=== PATIENT | male | born 1945 | race Caucasian/White ===

== ENCOUNTER 2017-05-25 21:39 | Observation (INO) | payer BC ==
[2017-05-25] MEDS ORDERED: SODIUM CHLORIDE 1,000 ML IV STA (21:52)
[2017-05-25] MEDS ORDERED: ONDANSETRON 4 MG/2 ML VIAL IVPB ONE (21:52)
--- NOTE | 2017-05-25 21:52 | PDOC ---
History of Present Illness - General History Source: Patient Exam Limitations: No Limitations - History of Present Illness Initial Comments: The patient is a 71 yo M with no past medical history presents with a couple days of nausea, vomiting and diarrhea. He describes his diarrhea as brown and watery. Patient denies recent travel. Patient denies sick contacts. Patient denies chest pain, lightheadedness and palpitations. Patient denies abdominal pain. Patient denies hematochezia and melena. Patient denies dysuria, hematuria , frequency and urgency. Surgical Hx: cholecystectomy PCP: Dr. Joe Rose Allergies: NKDA Social Hx: Social ETOH use <KinjassoncasaAngela - Last Filed: 05/26/17 01:37> <Zhane Hernández - Last Filed: 05/26/17 03:14> - General Chief Complaint: Nausea/Vomiting Stated Complaint: VOMITING Time Seen by Provider: 05/25/17 21:52 Past History <KinjassoncasaAngela - Last Filed: 05/26/17 01:37> - Psycho/Social/Smoking Cessation Hx Suicidal Ideation: No Smoking History: Never smoked Have you smoked in the past 12 months: No Information on smoking cessation initiated: No Hx Alcohol Use: No Drug/Substance Use Hx: No <Zhane Hernández - Last Filed: 05/26/17 03:14> - Past Medical History Allergies/Adverse Reactions: Allergies Allergy/AdvReac Type Severity Reaction Status Date / Time No Known Allergies Allergy Verified 05/25/17 21:44 Home Medications: Ambulatory Orders NK [No Known Home Medication] 05/25/17 Review of Systems - Review of Systems Able to Perform ROS?: Yes Comments:: CONSTITUTIONAL: Absent: fever, chills, diaphoresis, generalized weakness, malaise, loss of appetite HEENT: Absent: rhinorrhea, nasal congestion, throat pain, throat swelling, difficulty swallowing, mouth swelling, ear pain, eye pain, visual Changes CARDIOVASCULAR: Absent: chest pain, syncope, palpitations, irregular heart rate, lightheadedness , peripheral edema RESPIRATORY: Absent: cough, shortness of breath, dyspnea with exertion, orthopnea, wheezing, stridor, hemoptysis GASTROINTESTINAL: +nausea, vomiting and diarrhea Absent: abdominal pain, abdominal distension, constipation, melena, hematochezia GENITOURINARY: Absent: dysuria, frequency, urgency, hesitancy, hematuria, flank pain, genital pain MUSCULOSKELETAL: Absent: myalgia, arthralgia, joint swelling SKIN: Absent: rash, itching, pallor HEMATOLOGIC/IMMUNOLOGIC: Absent: easy bleeding, easy bruising, lymphadenopathy, frequent infections ENDOCRINE: Absent: unexplained weight gain, unexplained weight loss, heat intolerance, cold intolerance NEUROLOGIC: Absent: headache, focal weakness or paresthesia, dizziness, unsteady gait, seizure, mental status changes, bladder or bowel incontinence PSYCHIATRIC: Absent: anxiety, depression, suicidal or homicidal ideation, hallucinations <Angela Perez - Last Filed: 05/26/17 01:37> *Physical Exam - Vital Signs Last Vital Signs Temp Pulse Resp BP Pulse Ox 98.0 F 77 18 142/76 97 05/25/17 21:42 05/25/17 21:42 05/25/17 21:42 05/25/17 21:42 05/25/17 21:42 - Physical Exam Comments: GENERAL: Well developed, well nourished. Awake and alert. No acute distress. HEENT: Normocephalic, atraumatic. PERRLA, EOMI. No conjunctival pallor. Sclera are non- icteric. Moist mucous membranes. Oropharynx is clear. NECK: Supple. Full ROM. No JVD. Carotid pulses 2+ and symmetric, without bruits. No thyromegaly. No lymphadenopathy. CARDIOVASCULAR: Regular rate and rhythm. No murmurs, rubs, or gallops. Distal pulses are 2+ and symmetric. PULMONARY: No evidence of respiratory distress. Lungs clear to auscultation bilaterally. No wheezing, rales or rhonchi. ABDOMINAL: Soft. Non-tender. Non-distended. No rebound or guarding. No organomegaly. Normoactive bowel sounds. MUSCULOSKELETAL Normal range of motion at all joints. No bony deformities or tenderness. No CVA tenderness. EXTREMITIES: No cyanosis. No clubbing. No edema. No calf tenderness. SKIN: Warm and dry. Normal capillary refill. No rashes. No jaundice. NEUROLOGICAL: No gross focal neurological deficits. PSYCHIATRIC: Cooperative. Good eye contact. Appropriate mood and affect <Angela Perez - Last Filed: 05/26/17 01:37> - Vital Signs Last Vital Signs Temp Pulse Resp BP Pulse Ox 98.0 F 77 18 142/76 97 05/25/17 21:42 05/25/17 21:42 05/25/17 21:42 05/25/17 21:42 05/25/17 21:42 <Zhane Hernández - Last Filed: 05/26/17 03:14> Heart Score/ECG Review #1 ECG: NSR @ 71 bpm. Possible left atrial enlargement. Left axis deviation. Incomplete right bundle branch block. Left ventricualr hypertrophy. <Angela Perez - Last Filed: 05/26/17 01:37> ED Treatment Course - LABORATORY CBC & Chemistry Diagram: 05/25/17 22:25 05/25/17 22:25 - Medications Given in the ED: ED Medications Discontinued Medications Generic Name Dose Route Start Last Admin Trade Name Freq PRN Reason Stop Dose Admin Ondansetron HCl 4 mg 05/25/17 21:52 05/25/17 22:00 Zofran Injection IVPB 05/25/17 21:53 4 mg ONCE ONE Administration <Angela Perez - Last Filed: 05/26/17 01:37> - LABORATORY CBC & Chemistry Diagram: 05/25/17 22:25 05/25/17 22:25 <Zhane Hernández - Last Filed: 05/26/17 03:14> Medical Decision Making - Medical Decision Making Dr. Alvarez was paged @ 1:32. awaiting call back. Dr. Kunz was covering for Dr. Alvarez and responded @ 1:35. Case was discussed. <Angela Perez - Last Filed: 05/26/17 01:37> - Medical Decision Making 05/26/17 03:11 71 yo male p/w nausea,vomiting and diarrhea -pt given zofran and reglan but had persistent vomiting -he DENIED any abdominal or chest pain. no fever or chills ,cough or dyspnea -abdomen was soft,no rebound,no guarding pt admitted to med/surg after cse discussed with Dr Sha Kunz <Zhane Hernández - Last Filed: 05/26/17 03:14> *DC/Admit/Observation/Transfer - Attestations Scribe Attestion: Documentation prepared by Angela Perez, acting as senior medical writer for Zhane Hernández MD/DO. <Angela Perez - Last Filed: 05/26/17 01:37> - Discharge Dispostion Admit: Yes <Zhane Hernández - Last Filed: 05/26/17 03:14> Diagnosis at time of Disposition: Vomiting and diarrhea - Referrals
[2017-05-25] MEDS ORDERED: ONDANSETRON 4 MG/2 ML VIAL ONE (22:10)
[2017-05-25 22:40] LABS: BASOPHIL 0.3 % (0-2.0); EOSINOPHIL 0.7 % (0-4.5); MCH 29.4 pg (25.7-33.7); MCHC 33.5 g/dl (32.0-35.9); MEAN CELL VOLUME 87.6 fl (80-96); NEUTROPHILS 72.1 % (42.8-82.8); PLATELET COUNT 232 K/MM3 (134-434); RDW 13.5 % (11.9-15.9); WHITE BLOOD COUNT 12.5 K/mm3 (4.0-10.0)
[2017-05-25 23:08] LABS: ALBUMIN 4.3 g/dl (3.4-5.0); ALK PHOS 76 U/L (45-117); ANION GAP 10 (8-16); BILIRUBIN,TOTAL 1.1 mg/dL (0.2-1.0); CALCIUM 10.2 mg/dL (8.5-10.1); CO2 27 mmol/L (21-32); CREATININE 0.9 mg/dL (0.7-1.3); GLUCOSE,RANDOM 140 mg/dL (74-106); SGOT/AST 12 U/L (15-37); SGPT/ALT 26 U/L (12-78)
[2017-05-26] MEDS ORDERED: ONDANSETRON 4 MG/2 ML VIAL IVPUSH ONE (01:27)
[2017-05-26] MEDS ORDERED: ONDANSETRON 4 MG/2 ML VIAL ONE ×2 (01:28→01:31)
[2017-05-26] MEDS ORDERED: METOCLOPRAMIDE HCL INJECTION 10 MG/2 ML VIAL IVPUSH ONE (01:37)
[2017-05-26] MEDS ORDERED: PROCHLORPERAZINE INJECTION 10 MG/2 ML VIAL IM PRN (01:43)
[2017-05-26 01:54] LABS: URINE APPEARANCE CLEAR; URINE BILIRUBIN NEGATIVE (NEGATIVE); URINE BLOOD NEGATIVE (NEGATIVE); URINE COLOR YELLOW; URINE GLUCOSE (UA) 1+ (NEGATIVE); URINE KETONE 1+ (NEGATIVE); URINE LEUK ESTERASE NEGATIVE (NEGATIVE); URINE NITRITE NEGATIVE (NEGATIVE); URINE UROBILINOGEN NEGATIVE E.U./dl (0.2-1.0)
[2017-05-26] MEDS: DEXTROSE 5%-0.45% SALINE 1,000 ML IV SCH ×2 (01:59→15:06)
[2017-05-26] MEDS ORDERED: METOCLOPRAMIDE HCL INJECTION 10 MG/2 ML VIAL ONE (02:02)
[2017-05-26 02:12] LABS: URINE PROTEIN 1+ (NEGATIVE)
[2017-05-26 02:23] LABS: CALCIUM OXALATE CRYSTALS RARE /hpf (NONE SEEN); URINE BACTERIA RARE /hpf (NONE SEEN); URINE MUCUS MODERATE; URINE RBC 3 /hpf (0-3); URINE WBC 10 /hpf (3-5)
[2017-05-26 03:07] VITALS: BMI 35.0
[2017-05-26 07:57] LABS: BASOPHIL 0.2 % (0-2.0); EOSINOPHIL 0.2 % (0-4.5); MCH 30.3 pg (25.7-33.7); MCHC 34.7 g/dl (32.0-35.9); MEAN CELL VOLUME 87.3 fl (80-96); MEAN PLT VOLUME 8.6 fl (7.5-11.1); NEUTROPHILS 73.1 % (42.8-82.8); PLATELET COUNT 188 K/MM3 (134-434); RDW 13.5 % (11.9-15.9); WHITE BLOOD COUNT 9.5 K/mm3 (4.0-10.0)
[2017-05-26 08:38] LABS: ALBUMIN 3.8 g/dl (3.4-5.0); ANION GAP 9 (8-16); CO2 27 mmol/L (21-32); GLUCOSE,RANDOM 120 mg/dL (74-106); SGPT/ALT 24 U/L (12-78)
[2017-05-26 08:45] LABS: ALK PHOS 63 U/L (45-117); BILIRUBIN,TOTAL 1.4 mg/dL (0.2-1.0); CALCIUM 9.6 mg/dL (8.5-10.1); CREATININE 0.8 mg/dL (0.7-1.3); SGOT/AST 13 U/L (15-37)
--- NOTE | 2017-05-26 12:32 | HP ---
Admitting History and Physical - Primary Care Physician PCP: Richard Alvarez - Admission Chief Complaint: I'm throwing up History of Present Illness: Mr Estrada is a very pleasant 71 year old male with no medical problems who comes in with intractable nausea, vomiting, and diarrhea. He says the symptoms began yesterday. He has not had any recent travel or ate anything that was abnormal. He says his mother had the same symptoms two weeks ago. He says yesterday morning he first developed diarrhea. He says it was watery and yellow in color. He went to the bathroom at least 10 times. He says yesterday morning he attempted to eat eggs, but after eating he became nauseous and threw up. At first it looked like undigested food, but later times it was yellow and bilious. He denies fevers, chills, lightheadedness, dizziness, passing out, chest pain, shortness of breath, difficulty or pain on urination, or swelling. He did not note blood in his emesis or bowel movements. No coffee ground emesis or hematochezia. He is feeling improved today. History Source: Patient Limitations to Obtaining History: No Limitations - Past Surgical History Past Surgical History: Yes: None - Smoking History Smoking history: Never smoked Have you smoked in the past 12 months: No - Alcohol/Substance Use Hx Alcohol Use: No History of Substance Use: reports: None - Social History Usual Living Arrangement: Yes: With Spouse ADL: Independent History of Recent Travel: No Home Medications - Allergies Allergies/Adverse Reactions: Allergies Allergy/AdvReac Type Severity Reaction Status Date / Time No Known Allergies Allergy Verified 05/25/17 21:44 - Home Medications Home Medications: Ambulatory Orders NK [No Known Home Medication] 05/25/17 Family Disease History - Family Disease History Family Disease History: Other: Father ( in the war), Mother (no medical issues) Review of Systems Findings/Remarks: full review of systems obtained, as per HPI and otherwise negative Physical Examination Vital Signs: Vital Signs Temperature 98.5 F 05/26/17 12:20 Pulse Rate 80 05/26/17 12:20 Respiratory Rate 20 05/26/17 08:24 Blood Pressure 116/77 05/26/17 12:20 O2 Sat by Pulse Oximetry (%) 98 05/26/17 06:26 Constitutional: Yes: Well Nourished, No Distress, Calm Eyes: Yes: Conjunctiva Clear, EOM Intact, PERRL HENT: Yes: Atraumatic, Normocephalic Cardiovascular: Yes: Regular Rate and Rhythm. No: Gallop, Murmur, Rub Respiratory: Yes: Regular, CTA Bilaterally. No: Rales, Rhonchi, Wheezes Gastrointestinal: Yes: Normal Bowel Sounds, Soft. No: Distention, Tenderness Extremities: Yes: WNL Edema: No Labs: CBC, BMP 05/26/17 07:40 05/26/17 07:40 Imaging - Results Chest X-ray: Report Reviewed, Image Reviewed Problem List - Problems (1) Gastroenteritis and colitis, viral Assessment/Plan: -suspect viral gastroenteritis -admit under observation -hydration with IVF -supportive care -beginning to improve -advance diet as tolerated -c diff negative Code(s): A08.4 - VIRAL INTESTINAL INFECTION, UNSPECIFIED (2) Dehydration Assessment/Plan: -secondary to gastroenteritis -continue hydration Code(s): E86.0 - DEHYDRATION Assessment/Plan Dispo -possible discharge tomorrow
[2017-05-26] MEDS ORDERED: ACETAMINOPHEN 325 MG TABLET (FP) PO PRN (18:07)
[2017-05-27] MEDS: DEXTROSE 5%-0.45% SALINE 1,000 ML IV SCH (06:12)
[2017-05-27 07:47] LABS: BASOPHIL 0.4 % (0-2.0); EOSINOPHIL 2.4 % (0-4.5); MCHC 34.3 g/dl (32.0-35.9); MEAN CELL VOLUME 87.6 fl (80-96); MEAN PLT VOLUME 8.2 fl (7.5-11.1); NEUTROPHILS 57.8 % (42.8-82.8); PLATELET COUNT 174 K/MM3 (134-434); RDW 13.5 % (11.9-15.9)
[2017-05-27 07:59] LABS: ANION GAP 4 (8-16); CALCIUM 9.6 mg/dL (8.5-10.1); CO2 33 mmol/L (21-32); CREATININE 0.9 mg/dL (0.7-1.3); GLUCOSE,RANDOM 115 mg/dL (74-106)
--- NOTE | 2017-05-27 11:15 | EKG ---
Test Reason : Blood Pressure : / mmHG Vent. Rate : 071 BPM Atrial Rate : 071 BPM P-R Int : 172 ms QRS Dur : 106 ms QT Int : 394 ms P-R-T Axes : 039 -40 -03 degrees QTc Int : 428 ms NORMAL SINUS RHYTHM POSSIBLE LEFT ATRIAL ENLARGEMENT LEFT AXIS DEVIATION INCOMPLETE RIGHT BUNDLE BRANCH BLOCK LEFT VENTRICULAR HYPERTROPHY ABNORMAL ECG NO PREVIOUS ECGS AVAILABLE Confirmed by MAULIK CROCKER MD ([id number]) on 05/27/2017 11:14:49 AM Referred By: Confirmed By:MAULIK CROCKER MD
[2017-05-27 13:30] VITALS: BP 127/74; PULSE 82; TEMP 98.1
--- NOTE | 2017-05-27 16:05 | DS ---
Physical Examination Vital Signs: Vital Signs Temperature 98.1 F 05/27/17 13:29 Pulse Rate 82 05/27/17 13:29 Respiratory Rate 16 05/27/17 13:29 Blood Pressure 127/74 05/27/17 13:29 O2 Sat by Pulse Oximetry (%) 98 05/26/17 14:12 Constitutional: Yes: Well Nourished, No Distress, Calm Cardiovascular: Yes: Regular Rate and Rhythm. No: Gallop, Murmur, Rub Respiratory: Yes: Regular, CTA Bilaterally. No: Rales, Rhonchi, Wheezes Gastrointestinal: Yes: Normal Bowel Sounds, Soft. No: Distention, Tenderness Extremities: Yes: WNL Edema: No Labs: CBC, BMP 05/27/17 06:55 05/27/17 06:55 Discharge Summary Reason For Visit: NAUSEA AND VOMIITNG Current Active Problems Dehydration (Acute) Gastroenteritis and colitis, viral (Acute) Vomiting and diarrhea (Acute) Hospital Course: Mr Alvarado is a very pleasant 71 year old male who presented with viral gastroenteritis. He was admitted to the hospital under observation. He was hydrated with IVF. He was placed on a clear liquid diet which he tolerated. After 24 hour observation, he improved. He was advanced to a regular diet and tolerated. He is safe for discharge home. Condition: Good - Instructions Diet, Activity, Other Instructions: resume previous diet and activity Referrals: Richard Alvarez MD [Primary Care Provider] - Disposition: HOME - Home Medications Comprehensive Discharge Medication List: Ambulatory Orders NK [No Known Home Medication] 05/25/17
== END 2017-05-27 14:00 | disposition home or self-care (01) ==
LOC: JER 21:39 → INTOOBSV 05-26 02:39 → UNDOADMOB 05-26 02:39 → JERBED 05-26 02:39 → J6S 05-26 02:56 → JERBED 05-26 02:56 → J6S 05-26 14:12
PROVIDERS: ADMIT Specialist; ATTEND Specialist
PROC: 3E033GC Introduction of Other Therapeutic Substance into Peripheral Vein, Percutaneous Approach (ICD-10-PCS; principal; 2017-05-26)
PROC: 3E0337Z Introduction of Electrolytic and Water Balance Substance into Peripheral Vein, Percutaneous Approach (ICD-10-PCS; 2017-05-26)
DX: A08.4 Viral intestinal infection, unspecified (principal); E86.0 Dehydration
CPT/HCPCS: 36415; 71010-TC; 80048; 80053; 81003; 81015; 83690; 85025; 87324; 87449; 93005; 93010; 99284-25; G0378

== ENCOUNTER 2017-11-02 10:32 | Observation (INO) | payer BC ==
--- NOTE | 2017-11-02 10:45 | PDOC ---
History of Present Illness - General Stated Complaint: BACK PAIN Time Seen by Provider: 11/02/17 10:41 - History of Present Illness Initial Comments: 11/02/17 11:15 Chief complaint: Low back pain History of present illness: 71 years old no past medical history except for chronic back pain presents to the emergency department with exacerbation of his back pain. X-ray done in September and demonstrated L4-L5 loss of disc space height, degenerative endplate sclerosis, osteophytes, but spinal stenosis. No acute trauma. Pain is worse with movement with opposite straight leg raise and is worse with walking. Pain is described as 6 out of 10 sharp radiates down his left leg no weakness no numbness no bowel or bladder incontinence no recent imaging. No chest pain or shortness of breath. Past History - Travel Traveled outside of the country in the last 30 days: No Close contact w/someone who was outside of country & ill: No - Past Medical History Allergies/Adverse Reactions: Allergies Allergy/AdvReac Type Severity Reaction Status Date / Time No Known Allergies Allergy Verified 11/02/17 10:39 Home Medications: Ambulatory Orders NK [No Known Home Medication] 05/25/17 - Surgical History Cholecystectomy: Yes - Suicide/Smoking/Psychosocial Hx Smoking History: Never smoked Have you smoked in the past 12 months: No Hx Alcohol Use: No Drug/Substance Use Hx: No Substance Use Type: None Hx Substance Use Treatment: No Review of Systems - Review of Systems Comments:: 11/02/17 11:16 ROS: A complete review of 10 out of 10 review of systems is taken and is negative apart from what is previously mentioned below and in the HPI. *Physical Exam - Physical Exam Comments: 11/02/17 11:16 Vitals: Triage Vital signs reviewed General Appearance: no acute distress, well nourished well developed, Head: Atraumatic, Neck: Supple;No Nucal rigidity Chest Wall: Nontender Cardiac: Regular rate and rhythym, no murmurs, no rubs, no gallops, Lungs: Clear to auscultation bilateral, good air movement bilaterally, Abdomen: Soft, non distended, normal bowel sounds, non tender to palpation Extremities: Full range of motion to all extremities, no cyanosis, clubbing, or edema Skin: Warm and dry, no rashes or lesions, no rash, no petechiae Musculoskeletal: Midline L4-5 tenderness to palpation, pain with right straight leg raise radiates to left lower back Neuro: AOX3; Cranial Nerves 2-12 grossly intact, Strength intact to all extremities, Sensation intact to all extremities,gait normal Psych: normal mood, normal affect ED Treatment Course - LABORATORY CBC & Chemistry Diagram: 11/02/17 11:00 11/02/17 11:00 Medical Decision Making - Medical Decision Making 11/02/17 14:27 Greater than 3 weeks of progressive worsening low back pain with sciatica difficulty walking. Normal neurologic examination. We'll observe for MRI pain meds and further management. *DC/Admit/Observation/Transfer Diagnosis at time of Disposition: Low back pain Qualifiers: Chronicity: acute Back pain laterality: left Sciatica presence: with sciatica Sciatica laterality: sciatica of left side Qualified Code(s): M54.42 - Lumbago with sciatica, left side - Discharge Dispostion Admit: Yes - Referrals - Patient Instructions - Post Discharge Activity
[2017-11-02] MEDS ORDERED: diazePAM 5 MG TABLET PO ONE (11:03)
[2017-11-02] MEDS ORDERED: NAPROXEN 500 MG TABLET (FP) PO ONE (11:12)
[2017-11-02] MEDS ORDERED: diazePAM 5 MG TABLET ONE (11:14)
[2017-11-02] MEDS ORDERED: NAPROXEN 500 MG TABLET (FP) ONE (11:14)
[2017-11-02 11:15] LABS: BASOPHIL 0.6 % (0-2.0); EOSINOPHIL 1.4 % (0-4.5); MCH 29.8 pg (25.7-33.7); MEAN CELL VOLUME 87.7 fl (80-96); MEAN PLT VOLUME 8.2 fl (7.5-11.1); NEUTROPHILS 59.9 % (42.8-82.8); PLATELET COUNT 233 K/MM3 (134-434); RDW 13.3 % (11.9-15.9); WHITE BLOOD COUNT 6.3 K/mm3 (4.0-10.0)
[2017-11-02 11:26] LABS: INR 0.99 (0.82-1.09); PROTHROMBIN TIME (PATIENT) 11.2 SEC (9.98-11.88)
[2017-11-02 11:29] LABS: ACTIVATED PTT 30.7 SECONDS (26.9-34.4)
[2017-11-02 11:38] LABS: ANION GAP 5 (8-16); BILIRUBIN,TOTAL 0.8 mg/dL (0.2-1.0); CO2 29 mmol/L (21-32); CREATININE 0.9 mg/dL (0.7-1.3); GLUCOSE,RANDOM 89 mg/dL (74-106); SGOT/AST 14 U/L (15-37); SGPT/ALT 26 U/L (12-78); TOT PROT 7.3 g/dl (6.4-8.2)
[2017-11-02 11:39] LABS: ALK PHOS 65 U/L (45-117)
[2017-11-02] MEDS ORDERED: ACETAMINOPHEN 325 MG TABLET (FP) PO PRN (13:32)
[2017-11-02] MEDS ORDERED: oxyCODONE HCL 5 MG TABLET PO PRN (13:32)
--- NOTE | 2017-11-02 13:35 | HP ---
Admitting History and Physical - Primary Care Physician PCP: Richard Alvarez - Admission Chief Complaint: My back hurts History of Present Illness: Mr Alvarado is a very pleasant 71 year old male with history of low back pain for 20+ years but no other medical history who comes in with worsening back pain. He says approximately 3 weeks ago he noticed that his lower back was hurting worse than normal. The pain was constant and made worse with any movement. At this time the pain was localized only to the lower back. He denies any trauma causing worsening of the pain. He was referred to a chiropractor but did not help. Over the weekend he noticed that the pain was continuing to increase, however now it was radiating down his left leg. He was having difficulty walking secondary to the pain. Because of this he is coming in. He denies fevers , chills, lightheadedness, dizziness, passing out, falls, chest pain, shortness of breath, abdominal pain, nausea, vomiting, diarrhea, constipation, difficulty or pain on urination, incontinence, saddle paresthesias, numbness or swelling in his legs. He says the pain is better since he is not moving. History Source: Patient Limitations to Obtaining History: No Limitations - Past Surgical History Past Surgical History: Yes: Cholecystectomy - Smoking History Smoking history: Never smoked Have you smoked in the past 12 months: No - Alcohol/Substance Use Hx Alcohol Use: No History of Substance Use: reports: None - Social History ADL: Independent History of Recent Travel: No Home Medications - Allergies Allergies/Adverse Reactions: Allergies Allergy/AdvReac Type Severity Reaction Status Date / Time No Known Allergies Allergy Verified 11/02/17 10:39 - Home Medications Home Medications: Ambulatory Orders NK [No Known Home Medication] 05/25/17 Family Disease History - Family Disease History Family Disease History: Other: Father ( in the war), Mother (no medical issues) Review of Systems Findings/Remarks: Full review of systems obtained, as per HPI and otherwise negative Physical Examination Vital Signs: Vital Signs Temperature 37.0 C 11/02/17 10:32 Pulse Rate 85 11/02/17 10:32 Respiratory Rate 18 11/02/17 10:32 Blood Pressure 140/82 11/02/17 10:32 O2 Sat by Pulse Oximetry (%) 96 11/02/17 10:32 Constitutional: Yes: Well Nourished, No Distress, Calm Eyes: Yes: Conjunctiva Clear, EOM Intact, PERRL HENT: Yes: Atraumatic, Normocephalic Cardiovascular: Yes: Regular Rate and Rhythm. No: Gallop, Murmur, Rub Respiratory: Yes: Regular, CTA Bilaterally. No: Rales, Rhonchi, Wheezes Gastrointestinal: Yes: Normal Bowel Sounds, Soft. No: Distention, Tenderness Extremities: Yes: WNL Edema: No Labs: CBC, BMP 11/02/17 11:00 11/02/17 11:00 Imaging - Results Chest X-ray: Report Reviewed, Image Reviewed MRI: Pending Problem List - Problems (1) Low back pain Assessment/Plan: -patient presents with acute worsening of lower back pain with sciatica -MRI ordered and pending -patient with recent chiropractor work, will need evaluation for possible fractures -will consult neurosurgery for evaluation -consult pain management -PT consult -trial of tramadol Code(s): M54.5 - LOW BACK PAIN Qualifiers: Chronicity: acute Back pain laterality: left Sciatica presence: with sciatica Sciatica laterality: sciatica of left side Qualified Code(s): M54.42 - Lumbago with sciatica, left side
[2017-11-02 15:59] VITALS: BMI 43.2
[2017-11-02] MEDS: traMADol HCL 50 MG TABLET PO PRN (20:09)
--- NOTE | 2017-11-02 23:14 | CONSULT ---
Consult Consult Specialty:: pain management Referred by:: dr khanna Reason for Consultation:: back pain - History of Present Illness Chief Complaint: back pain History of Present Illness: 71 year old male with history of low back pain for 20+ years but no other medical history who comes in with worsening back pain. He says approximately 3 weeks ago he noticed that his lower back was hurting worse than normal. Currently he reports the pain is located in the lower back and buttocks. Pain score 9/10 - Past Surgical History Past Surgical History: Yes: Cholecystectomy - Alcohol/Substance Use Hx Alcohol Use: No History of Substance Use: reports: None - Smoking History Smoking history: Never smoked Have you smoked in the past 12 months: No - Social History ADL: Independent History of Recent Travel: No Home Medications - Allergies Allergies/Adverse Reactions: Allergies Allergy/AdvReac Type Severity Reaction Status Date / Time No Known Allergies Allergy Verified 11/02/17 10:39 - Home Medications Home Medications: Ambulatory Orders NK [No Known Home Medication] 05/25/17 Family Disease History - Family Disease History Family Disease History: Other: Father ( in the war), Mother (no medical issues) Physical Exam Vital Signs: Vital Signs Temperature 98.7 F 11/02/17 23:02 Pulse Rate 65 11/02/17 23:02 Respiratory Rate 20 11/02/17 23:02 Blood Pressure 99/52 11/02/17 23:02 O2 Sat by Pulse Oximetry (%) 97 11/02/17 20:11 Musculoskeletal: Yes: Back Pain Labs: CBC, BMP 11/02/17 11:00 11/02/17 11:00 Assessment/Plan Lumbar disc herniation Lumbar radiculopathy MRI shows a large disc herniation which is most likely the source of his pain. His options 1. lumbar RADHA- i suggested this but the patient would like to think about it 2. Gabapentin 100mg PO q8h 3. COnsider spine surgery eval
--- NOTE | 2017-11-03 07:37 | EKG ---
Test Reason : Blood Pressure : / mmHG Vent. Rate : 058 BPM Atrial Rate : 058 BPM P-R Int : 186 ms QRS Dur : 098 ms QT Int : 410 ms P-R-T Axes : 020 -36 -01 degrees QTc Int : 402 ms SINUS BRADYCARDIA LEFT AXIS DEVIATION INCOMPLETE RIGHT BUNDLE BRANCH BLOCK MINIMAL VOLTAGE CRITERIA FOR LVH, MAY BE NORMAL VARIANT ABNORMAL ECG WHEN COMPARED WITH ECG OF 25-MAY-2017 22:00, NO SIGNIFICANT CHANGE WAS FOUND Confirmed by Ben Olivares ([id number]) on 11/02/2017 2:24:00 PM Also confirmed by MD Olivares Daniel ([id number]), acquisition editor BEN MACEDO ([id number]) on 11/03/2017 7:37:38 AM Referred By: Confirmed By:Ben Olivares MD
[2017-11-03 08:16] LABS: BASOPHIL 0.7 % (0-2.0); EOSINOPHIL 3.1 % (0-4.5); MCH 30.2 pg (25.7-33.7); MCHC 34.4 g/dl (32.0-35.9); MEAN CELL VOLUME 87.8 fl (80-96); MEAN PLT VOLUME 8.6 fl (7.5-11.1); NEUTROPHILS 46.2 % (42.8-82.8); PLATELET COUNT 210 K/MM3 (134-434); RDW 13.6 % (11.9-15.9); WHITE BLOOD COUNT 5.8 K/mm3 (4.0-10.0)
--- NOTE | 2017-11-03 08:27 | PN ---
Progress Note (short form) - Note Progress Note: NEUROSURGERY CONSULT DICTATED Pt examined History obtained Chart reviewed 24 years h/o LBP with 3 weeks of worsening pain. Worse with any movement. Chiropractic tx did not help. Pain radiating down his left posterior and lateral thigh. +difficulty walking secondary to the pain. He denies fevers, chill, B/B incontinence, numbness, or weakness of his legs. Pain is better with rest. PE: AF, VSS HEENT- BC/AT; Neck- supple; Cor- RRR; Lungs- CTA; ABd- benign; Ext- no sign of DVT CN- itnact II-XII; Motor- 5/5 B UE/LE; Sensation- intact LT and vibration; DTR- 2+ except diminished B ankle reflexes; Back- mild tenderness; negative SLR to 50 degrees B WBC 6.3, INR 0.99 LS MRI- L L3-4 paracentral disc protrusion with thecal sac impingement; L4-5 DDD and chronic endplate changes; mild L5-S1 central disc bulge L L3-4 paracentral disc protrusion with L L4 radiculopathy PT, Neurontin, pain meds If persistent pain consider EPSI Surgery reserved for neurological deficits and intractable pain despite conservative tx Pt apprehensive of invasive procedures anyway
[2017-11-03 08:40] LABS: ANION GAP 7 (8-16); CALCIUM 9.9 mg/dL (8.5-10.1); CO2 27 mmol/L (21-32); CREATININE 0.9 mg/dL (0.7-1.3); GLUCOSE,RANDOM 96 mg/dL (74-106); MAGNESIUM 2.5 mg/dL (1.8-2.4); PHOSPHOROUS 2.8 mg/dL (2.5-4.9)
[2017-11-03] MEDS: DOCUSATE SODIUM 100 MG CAPSULE (FP) PO PRN (09:23)
[2017-11-03] MEDS: GABAPENTIN 100 MG CAPSULE (FP) PO SCH ×3 (09:23→21:05)
[2017-11-03] MEDS: POLYETHYLENE GLYCOL 3350 119 GM BTL PO SCH (09:23)
[2017-11-03] MEDS: traMADol HCL 50 MG TABLET PO PRN (12:52)
--- NOTE | 2017-11-03 15:08 | PN ---
Progress Note, Physician Chief Complaint: While Mr Alvarado walked, he says he had severe pain with ambulation today. Denies cp, sob, n/v. - Current Medication List Current Medications: Active Medications Acetaminophen (Tylenol -) 650 mg PO Q4H PRN PRN Reason: FEVER OR PAIN Docusate Sodium (Colace -) 100 mg PO BID PRN PRN Reason: CONSTIPATION Last Admin: 11/03/17 09:23 Dose: 100 mg Gabapentin (Neurontin -) 100 mg PO TID [facility] Last Admin: 11/03/17 09:23 Dose: 100 mg Polyethylene Glycol (Miralax (For Daily Use) -) 17 gm PO DAILY [facility] Last Admin: 11/03/17 09:23 Dose: 17 grams Tramadol HCl (Ultram -) 50 mg PO Q6H PRN PRN Reason: PAIN Last Admin: 11/03/17 12:52 Dose: 50 mg - Objective Vital Signs: Vital Signs Temperature 36.5 C 11/03/17 14:13 Pulse Rate 67 11/03/17 14:13 Respiratory Rate 18 11/03/17 14:13 Blood Pressure 116/68 11/03/17 14:13 O2 Sat by Pulse Oximetry (%) 95 11/03/17 13:00 Constitutional: Yes: No Distress, Calm, Obese Cardiovascular: Yes: Regular Rate and Rhythm. No: Gallop, Murmur, Rub Respiratory: Yes: Regular, CTA Bilaterally. No: Rales, Rhonchi, Wheezes Gastrointestinal: Yes: Normal Bowel Sounds, Soft. No: Distention, Tenderness Extremities: Yes: WNL Edema: No Labs: CBC, BMP 11/03/17 07:45 11/03/17 07:45 INR, PTT INR 0.99 (0.82-1.09) 11/02/17 11:00 Problem List - Problems (1) Low back pain Code(s): M54.5 - LOW BACK PAIN Qualifiers: Chronicity: acute Back pain laterality: left Sciatica presence: with sciatica Sciatica laterality: sciatica of left side Qualified Code(s): M54.42 - Lumbago with sciatica, left side Assessment/Plan (1) Low back pain Assessment/Plan: -appreciate neurosurgery and pain management assistance -patient says when took tramadol last night, pain was well controlled and resolved -MRI reviewed showing herniation -RADHA recommended, patient would prefer to trial tramadol and follow up as an outpatient -will have take tramadol today and re-walk tomorrow with tramadol -if pain is controlled then discharge tomorrow Code(s): M54.5 - LOW BACK PAIN Qualifiers: Chronicity: acute Back pain laterality: left Sciatica presence: with sciatica Sciatica laterality: sciatica of left side Qualified Code(s): M54.42 - Lumbago with sciatica, left side
--- NOTE | 2017-11-03 17:28 | CONS ---
DATE OF CONSULTATION: REQUESTING PHYSICIAN: Dennis Macdonald M.D. CONSULTING PHYSICIAN: Edgar Inman M.D., neurosurgery CHIEF COMPLAINT: Lower back pain with left lower extremity radiculopathy. HISTORY OF PRESENT ILLNESS: The patient is a 71-year-old right handed male with no significant past medical history except for 24-year history of lower back pain and occasional right lower extremity numbness, who complains of 3 week history of progressive recurrent lower back pain and left lower extremity radiculopathy. The pain radiates down to the left buttock and left posterolateral side, not beyond the left knee. There is no associated weakness, numbness, or tingling. There is no associated bowel or bladder dysfunction. Despite taking Advil and Tylenol and going to a chiropractor, his pain persisted. In fact his pain continued to progress. He has no fever or chills or recent infection. He denies being diabetic. He has no other new neurological symptoms. PAST MEDICAL HISTORY: Significant for chronic lower back pain of 24 years' duration. CURRENT MEDICATIONS: Include Tylenol, Colace, Miralax, and Ultram. ALLERGIES: No known drug allergies. FAMILY HISTORY: Noncontributory. SOCIAL HISTORY: He does not smoke and only drinks alcohol socially. He is retired. REVIEW OF SYSTEMS: Otherwise negative for other cardiovascular, pulmonary, gastrointestinal, genitourinary, endocrinologic, neurologic, psychological or constitutional problems. There is no history of oncological issues or recent infections. PHYSICAL EXAMINATION: Vital signs: Temperature 99.4, blood pressure 132/86 with pulse rate 71. HEENT: Normocephalic, atraumatic, anicteric. Neck: Supple with no lymphadenopathy, no carotid bruit. Coronary: Regular rhythm without a murmur. Lungs: Clear to auscultation bilaterally. Abdomen: Benign, with active bowel sounds. Extremities: No signs of DVT. Neurologic: He is awake, alert, oriented x4. Cranial nerves examination intact 2-12. Motor examination shows 5/5 strength in bilateral upper and lower extremities without fasciculation or atrophy. Sensory examination is intact to light touch, and vibratory sensation. Deep tendon reflexes are 2+ throughout except diminished ankle reflexes bilaterally. Gait is not tested for safety reasons. Back: Examination of the lower back demonstrated mild left sciatic notch tenderness. He has a negative straight leg raise to 50 degrees bilaterally. LABORATORY EXAMINATION: Shows white blood cell count of 5.8, hemoglobin 15.6, platelet count 210,000, INR is 0.99, PTT is 30.7. BUN and creatinine are 13 and 0.9, respectively. Serum sodium is 139. X-ray of the lumbar spine done a couple weeks ago demonstrated L4-5 marked degenerative disk space narrowing with slight loss of normal lumbar lordosis. There is arthrosis at multiple levels. There is no fracture or dislocation. MRI of the lumbar spine done yesterday demonstrated marked degenerative disk disease at L4-5 with chronic endplate signal changes. There is mild lateral recessive foraminal narrowing with minimal right L5 nerve impingement. There is a left L3-4 parasagittal disk protrusion with thecal sac impingement. IMPRESSION: 1. Probable acute left L3-4 parasagittal disk protrusion with lower back pain and left L4 radiculopathy. 2. L4-5 marked degenerative disk disease with chronic right L5 radiculopathy. RECOMMENDATION: The patient presents with a chronic lower back pain with 3-week history of acute onset lower back pain associated with left lower extremity radiculopathy. On examination today, he has a nonfocal examination, with no motor or sensory or reflex deficit referable to L3-4 level. MRI demonstrated a probable acute left L3 parasagittal disk protrusion with mild thecal sac impingement. A course of physical therapy with antiinflammatory medications could be considered. I would also add Neurontin 100 mg p.o. t.i.d. for his radicular symptoms. If his pain persists, lumber epidural steroid injection may be of benefit. Surgery would be reserved for neurological deficits or persistent pain despite conservative treatment. The patient is apprehensive of any invasive procedure, and it will be reasonable therefore at this time just to stick with medical management alone. The pros and cons of treatment approach was discussed and all questions were answered at bedside. EDGAR INMAN M.D. GRISELDA/[id number] MTDD
[2017-11-04] MEDS: GABAPENTIN 100 MG CAPSULE (FP) PO SCH ×2 (06:19→13:55)
--- NOTE | 2017-11-04 08:40 | PN ---
Progress Note (short form) - Note Progress Note: NEUROSURGERY Denies B/B incontinence, numbness, or weakness of his legs. Pain 6/10 when up and walking. Better than 2 days ago. L buttock and lateral thigh. PE: AF, VSS HEENT- BC/AT; Neck- supple; Cor- RRR; Lungs- CTA; ABd- benign; Ext- no sign of DVT CN- itnact II-XII; Motor- 5/5 B UE/LE; Sensation- intact LT and vibration; DTR- 2+ except diminished B ankle reflexes; Back- mild tenderness; negative SLR to 50 degrees B LS MRI- L L3-4 paracentral disc protrusion with thecal sac impingement; L4-5 DDD and chronic endplate changes; mild L5-S1 central disc bulge L L3-4 paracentral disc protrusion with L L4 radiculopathy PT, Neurontin, pain meds If persistent pain consider EPSI for L sciatica (seen by Dr. Aceves already) If new neurological deficits or intractable pain despite conservative tx would then recommend surgery
[2017-11-04 09:07] VITALS: PULSE 71; TEMP 98.2
[2017-11-04] MEDS: traMADol HCL 50 MG TABLET PO PRN ×2 (09:29→15:37)
[2017-11-04] MEDS: DOCUSATE SODIUM 100 MG CAPSULE (FP) PO PRN (09:29)
[2017-11-04] MEDS: POLYETHYLENE GLYCOL 3350 119 GM BTL PO SCH (09:29)
--- NOTE | 2017-11-04 12:20 | DS ---
Physical Examination Vital Signs: Vital Signs Temperature 36.8 C 11/04/17 09:07 Pulse Rate 71 11/04/17 09:07 Respiratory Rate 20 11/04/17 09:07 Blood Pressure 141/72 11/04/17 09:07 O2 Sat by Pulse Oximetry (%) 95 11/03/17 13:00 Constitutional: Yes: Well Nourished, No Distress, Calm Cardiovascular: Yes: Regular Rate and Rhythm. No: Gallop, Murmur, Rub Respiratory: Yes: Regular, CTA Bilaterally. No: Rales, Rhonchi, Wheezes Gastrointestinal: Yes: Normal Bowel Sounds, Soft. No: Distention, Tenderness Extremities: Yes: WNL Edema: No Labs: CBC, BMP 11/03/17 07:45 11/03/17 07:45 Discharge Summary Reason For Visit: LOW BACK PAIN Current Active Problems Low back pain (Acute) Hospital Course: 1. Large lumbar herniation with nerve impingement: Mr Alvarado is a very pleasant 71 year old male who comes in with worsening back pain with radiation. He was admitted to the hospital under observation. He underwent MRI which showed a large herniation with nerve impingement. He was seen by neurosurgery and pain management. Since there was no neurologic deficits, trial of conservative management. RADHA was discussed but patient would prefer trial of medical management before interventions. He was started on gabapentin and prn tramadol. This controlled his pain. He was ambulated with PT without complications. He is safe for discharge home. Condition: Stable - Instructions Diet, Activity, Other Instructions: resume previous diet. Ambulate with cane. Referrals: Richard Alvarez MD [Primary Care Provider] - Fuentes Aceves MD [Staff Physician] - Edgar Bennett MD [Staff Physician] - Disposition: HOME - Home Medications Comprehensive Discharge Medication List: Ambulatory Orders Gabapentin [Neurontin -] 100 mg PO TID #90 capsule 11/04/17 Tramadol HCl [Ultram -] 50 mg PO Q6H PRN #30 tablet MDD 400mg 11/04/17
[2017-11-04 14:34] VITALS: BP 125/75
== END 2017-11-04 16:16 | disposition home or self-care (01) ==
LOC: JER 10:32 → JERBED 11:53 → J6S 15:00
PROVIDERS: ADMIT Internal Medicine; ATTEND Internal Medicine
DX: M51.16 Intervertebral disc disorders with radiculopathy, lumbar region (principal)
CPT/HCPCS: 36415; 71010-TC; 72148-TC; 80048; 80053; 80307; 83735; 84100; 85025; 85610; 85730; 93005; 93010; 97116-GP; 97161-GP; 99283-25; G0378

== ENCOUNTER 2019-02-05 22:01 | Inpatient (IN) | payer OTHER ==
--- NOTE | 2019-02-05 22:20 | PDOC ---
Attending Attestation - HPI HPI: 02/05/19 23:39 The patient is a 73 year old male, with a significant past medical history of diverticulosis and possible diverticulitis (10 years ago), who presents to the emergency department with, left quadrant abdominal pain with associated nausea and 15 episodes of emesis. He denies any recent fevers, chills, headache or dizziness. He denies any recent diarrhea or constipation. He denies any recent chest pain or shortness of breath. He denies any recent dysuria, frequency, urgency or hematuria. Allergies: NKDA Primary Care Physician: Dr. Arellano - Medical Decision Making 02/06/19 00:39 EXAM: CT ABDOMEN AND PELVIS WITH CONTRAST 1.4 cm stone mid left ureter causing moderate hydronephrosis. Small stones and small cyst right kidney. No bowel obstruction, colitis, free fluid or free air. Normal appendix. Diverticulosis colon without acute diverticulitis. Unremarkable pancreas. Cholecystectomy. Small umbilical and left inguinal region hernias containing fat. Minimal gynecomastia. Read by: Urmila Moore MD <Scar Grover - Last Filed: 02/06/19 00:39> - Resident Resident Name: Joanne Gallagher - ED Attending Attestation I have performed the following: I have examined & evaluated the patient, The case was reviewed & discussed with the resident, I agree w/resident's findings & plan, Exceptions are as noted - Physicial Exam PE: 02/05/19 23:09 73 yo male has c/o left sided abd pain above his left hip head ncat neck supple lungs cta b/l cvs [id number] abd soft,+bs,no rebound, no guarding ext no edema no cva - Medical Decision Making 02/05/19 22:33 diverticulosis PMH never had this pain before intermittent colicky pain x 4 days , pain 6/10, new onset nausea and vomiting -pain is sharp,non radiating PSH cholecystectomy social no etoh, no tob meds aspirin daily 02/06/19 01:05 pt's cr is now elevated to 1.[address] scan reveals a large 1.4 cm stone in the ureter with hydronephrosis Urology consulted and the pt will be admitted for further care <Zhane Hernández - Last Filed: 02/06/19 01:14> Attestations - Attestations 02/05/19 23:40 Documentation prepared by Scar Grover, acting as medical affairs director for Zhane Hernández MD. <Scar Grover - Last Filed: 02/06/19 00:39>
[2019-02-05] MEDS ORDERED: ONDANSETRON 4 MG/2 ML VIAL IVPB ONE (22:32)
[2019-02-05] MEDS ORDERED: ACETAMINOPHEN 1000 MG/100 ML VIAL (NON FORMULARY) IVPB ONE (22:32)
[2019-02-05] MEDS ORDERED: SODIUM CHLORIDE 1,000 ML IV STA (22:41)
[2019-02-05] MEDS ORDERED: ONDANSETRON 4 MG/2 ML VIAL ONE (22:42)
[2019-02-05] MEDS ORDERED: ACETAMINOPHEN INJECTION 100 ML IVPB ONE (22:42)
--- NOTE | 2019-02-05 22:57 | PDOC ---
History of Present Illness - General Chief Complaint: Nausea/Vomiting Stated Complaint: VOMITING Time Seen by Provider: 02/05/19 22:08 History Source: Patient Exam Limitations: No Limitations - History of Present Illness Travel History: No Initial Comments: 02/05/19 22:51 Pt is a 73yo M with PMH of diverticulosis, diverticulitis, back pain presenting to ED for LLQ abdominal pain that started today. Pt states that he had a similar pain 4 days ago but went away. He states the pain is in the LLQ, does not radiate, is sharp, 6/10, associated with nausea and 15 episodes of nbnb emesis. He states that his BMs have been minimal and "like string". Last BM was yesterday. He denies chest pain, SOB, cough, back pain, flank pain, urinary symptoms. Had diverticulitis around 10 years ago on the R side. History of cholecystectomy 2 years ago. PMD: Eileen PMH: see hpi PSH: see hpi Meds: ASA Allergies: nkda Social: denies Past History - Past Medical History Allergies/Adverse Reactions: Allergies Allergy/AdvReac Type Severity Reaction Status Date / Time No Known Allergies Allergy Verified 02/05/19 22:05 Home Medications: Ambulatory Orders Aspirin 81 mg PO DAILY 02/05/19 Anemia: No Asthma: No Cancer: No Cardiac Disorders: No CVA: No COPD: No CHF: No Dementia: No Diabetes: No GI Disorders: No Disorders: No HTN: No Hypercholesterolemia: Yes Liver Disease: No Seizures: No Thyroid Disease: No - Surgical History Abdominal Surgery: No Appendectomy: No Cardiac Surgery: No Cholecystectomy: Yes Lung Surgery: No Neurologic Surgery: No Orthopedic Surgery: No - Suicide/Smoking/Psychosocial Hx Smoking History: Never smoked Have you smoked in the past 12 months: No Hx Alcohol Use: No Drug/Substance Use Hx: No Substance Use Type: None Hx Substance Use Treatment: No Review of Systems - Review of Systems Constitutional: No: Chills, Fever HEENTM: No: Symptoms Reported Respiratory: No: Cough, Shortness of Breath Cardiac (ROS): No: Chest Pain, Lightheadedness, Palpitations, Syncope ABD/GI: Yes: See HPI, Nausea, Vomiting, Abdominal cramping. No: Blood Streaked Bowels, Constipated, Diarrhea, Tarry Stools : No: Burning, Dysuria, Hematuria Musculoskeletal: No: Back Pain, Joint Pain, Neck Pain Integumentary: No: Symptoms Reported Neurological: No: Headache, Numbness, Tingling *Physical Exam - Vital Signs Last Vital Signs Temp Pulse Resp BP Pulse Ox 98.4 F 78 20 128/81 97 02/05/19 22:03 02/05/19 22:03 02/05/19 22:03 02/05/19 22:03 02/05/19 22:03 - Physical Exam General Appearance: Yes: Nourished, Appropriately Dressed. No: Apparent Distress HEENT: positive: EOMI, ANDRES, Normal ENT Inspection Neck: positive: Trachea midline, Supple. negative: Lymphadenopathy (R), Lymphadenopathy (L) Respiratory/Chest: positive: Lungs Clear, Normal Breath Sounds. negative: Crackles, Rales, Rhonchi, Stridor, Wheezing Cardiovascular: positive: Regular Rhythm, Regular Rate, S1, S2. negative: Edema , JVD, Murmur Vascular Pulses: Carotid (R): 2+, Carotid (L): 2+, Dorsalis-Pedis (R): 2+, Doralis-Pedis (L): 2+ Gastrointestinal/Abdominal: positive: Normal Bowel Sounds, Soft, Tenderness (LLQ ). negative: Protuberent, Distended, Guarding, Rebound, Hernia, Mass Musculoskeletal: negative: CVA Tenderness, CVA Tenderness (R), CVA Tenderness (L ) Extremity: positive: Normal Capillary Refill, Pelvis Stable. negative: Swelling , Calf Tenderness Integumentary: positive: Normal Color, Dry, Warm. negative: Swelling Neurologic: positive: family nurse II-XII NML intact, Fully Oriented, Alert, Normal Mood/ Affect, Normal Response, Motor Strength 5/5 Moderate Sedation - Procedure Monitoring Vital Signs: Procedure Monitoring Vital Signs Temperature 98.4 F 02/05/19 22:03 Pulse Rate 78 02/05/19 22:03 Respiratory Rate 20 02/05/19 22:03 Blood Pressure 128/81 02/05/19 22:03 O2 Sat by Pulse Oximetry (%) 97 02/05/19 22:03 ED Treatment Course - LABORATORY CBC & Chemistry Diagram: 02/05/19 23:15 02/05/19 22:30 - RADIOLOGY Radiology Studies Ordered: Category Date Time Status ABDOMEN & PELVIS CT WITH CONTR [CT] Stat CT Scan 02/05/19 22:37 Ordered Medical Decision Making - Medical Decision Making 02/05/19 22:57 Pt is a 73yo M with PMH of diverticulosis, diverticulitis, back pain presenting to ED for LLQ abdominal pain that started today. Pt states that he had a similar pain 4 days ago but went away. He states the pain is in the LLQ, does not radiate, is sharp, 6/10, associated with nausea and 15 episodes of nbnb emesis. He states that his BMs have been minimal and "like string". Last BM was yesterday. He denies chest pain, SOB, cough, back pain, flank pain, urinary symptoms. Had diverticulitis around 10 years ago on the R side. History of cholecystectomy 2 years ago. Vitals: wnl PE: LLQ tenderness, no rebound, no guarding. pulses palpable bilaterally. No flank tenderness. Ddx includes but not limited to diverticulitis, SBO, infectious colitis, nephrolithiasis, pyelonephritis, AAA/dissection, mesenteric ischemia -cbc, cmp, lipase, lactic acid -fluids, zofran, iv tylenol -CTAP 02/05/19 23:34 CBC clotted. New vial drawn. Labs significant for Cr 1.9 (0.06 June 2018). Will order Ct without contrast. Urine Na added. 02/06/19 01:16 CT shows 14mm stone in mid L ureter causing moderate hydronephrosis. UA negative for infection. Dr. Baker called. Will see pt tomorrow. EKG ordered. Pt will be admitted for obstructing stone causing ANDREI. Pt not in significant pain at this time. *DC/Admit/Observation/Transfer Diagnosis at time of Disposition: Kidney stone, ANDREI (acute kidney injury) Hydronephrosis Qualifiers: Hydronephrosis type: with ureteral calculous obstruction Qualified Code(s): N13.2 - Hydronephrosis with renal and ureteral calculous obstruction - Discharge Dispostion Decision to Admit order: Yes - Referrals Referrals: Mabel Arellano MD [Primary Care Provider] - Tereso Baker MD [Staff Physician] - - Patient Instructions - Post Discharge Activity
[2019-02-05 23:24] LABS: ALBUMIN 4.1 g/dl (3.4-5.0); ALK PHOS 79 U/L (45-117); ANION GAP 8 MMOL/L (8-16); BILIRUBIN,TOTAL 0.9 mg/dL (0.2-1); BLOOD UREA NITROGEN 15 mg/dL (7-18); CHLORIDE 102 mmol/L (98-107); CO2 24 mmol/L (21-32); CREATININE 1.9 mg/dL (0.55-1.3); GLUCOSE,RANDOM 151 mg/dL (74-106); POTASSIUM 4.2 mmol/L (3.5-5.1); SGOT/AST 22 U/L (15-37); SGPT/ALT 35 U/L (13-61); SODIUM 135 mmol/L (136-145); TOT PROT 7.7 g/dl (6.4-8.2)
[2019-02-05 23:41] LABS: BASO % 0.2 % (0-2.0); EOS % 0.2 % (0-4.5); HEMATOCRIT 41.5 % (35.4-49); HEMOGLOBIN 14.6 GM/dL (11.7-16.9); LYMPH % 7.5 % (8-40); MCH 31.1 pg (25.7-33.7); MCHC 35.2 g/dl (32.0-35.9); MEAN CELL VOLUME 88.5 fl (80-96); MEAN PLT VOLUME 8.9 fl (7.5-11.1); MONO % 7.2 % (3.8-10.2); NEUT % 84.9 % (42.8-82.8); PLATELET COUNT 185 K/MM3 (134-434); RBC 4.69 M/mm3 (4.00-5.60); RDW 13.7 % (11.9-15.9)
[2019-02-05 23:43] LABS: URINE APPEARANCE CLEAR; URINE BILIRUBIN NEGATIVE (<2.0 mg/dL); URINE COLOR LTYELLOW; URINE GLUCOSE (UA) NEGATIVE (NEGATIVE); URINE KETONE TRACE (NEGATIVE); URINE LEUK ESTERASE NEGATIVE (NEGATIVE); URINE NITRITE NEGATIVE (NEGATIVE); URINE PROTEIN NEGATIVE (NEGATIVE); URINE UROBILINOGEN NEGATIVE mg/dL (0.2-1.0)
[2019-02-06] MEDS ORDERED: ONDANSETRON 4 MG/2 ML VIAL IVPUSH PRN ×2 (01:50→20:06)
--- NOTE | 2019-02-06 02:26 | HP ---
CHIEF COMPLAINT:left flank pain PCP:Dr. Arellano HISTORY OF PRESENT ILLNESS: Patient is a 73 year old male with past medical history of diverticulosis with diverticulitis and chronic low back pain, presented to the ED due to 3 week history of left flank pain and multiple episodes of NBNB vomiting for 1 day. Patient reported intermittent, sharp, left flank pain, 5-7/10 in severity that started about 3 weeks ago. He takes tylenol occasionally for the pain which would provide relief, and noted pain is aggravated when he lies on his left side. Today, patient had about at least 15 episodes of NBNB vomiting. Patient attributed it to the food he ate today, but none of the other family members have similar episodes. Upon arrival at the ED, no more episodes of nausea or vomiting. Otherwise he denies fever, chills, headache, dizziness, chest pain, SOB, palpitations, diarrhea, urinary symptoms. ER course was notable for: (1)CT abdomen/pelvis with contrast: 1.4 cm stone mid left ureter causing moderate hydronephrosis. Small stones and small cyst in the right kidney. Diverticulosis without acute diverticulitis. (2)Crea 1.9 (3) Recent Travel:denies PAST MEDICAL HISTORY: Diverticulosis with hx of diverticulitis Chronic low back pain/ lumbar disc herniation PAST SURGICAL HISTORY: Cholecystectomy Social History: Smoking:denies Alcohol:occasional Drugs: denies Lives with mom and . Family History: noncontributory Allergies No Known Allergies Allergy (Verified 02/05/19 22:05) HOME MEDICATIONS: Home Medications Medication Instructions Recorded Aspirin 81 mg PO DAILY 02/05/19 REVIEW OF SYSTEMS CONSTITUTIONAL: Absent: fever, chills, diaphoresis, generalized weakness, malaise, loss of appetite, weight change HEENT: Absent: rhinorrhea, nasal congestion, throat pain, throat swelling, difficulty swallowing, mouth swelling, ear pain, eye pain, visual changes CARDIOVASCULAR: Absent: chest pain, syncope, palpitations, irregular heart rate, lightheadedness , peripheral edema RESPIRATORY: Absent: cough, shortness of breath, dyspnea with exertion, orthopnea, wheezing, stridor, hemoptysis GASTROINTESTINAL: LLQ pain, left flank pain, nausea, vomiting Absent: abdominal distension, diarrhea, constipation, melena, hematochezia GENITOURINARY: Absent: dysuria, frequency, urgency, hesitancy, hematuria, flank pain, genital pain MUSCULOSKELETAL: Absent: myalgia, arthralgia, joint swelling, back pain, neck pain SKIN: Absent: rash, itching, pallor HEMATOLOGIC/IMMUNOLOGIC: Absent: easy bleeding, easy bruising, lymphadenopathy, frequent infections ENDOCRINE: Absent: unexplained weight gain, unexplained weight loss, heat intolerance, cold intolerance NEUROLOGIC: Absent: headache, focal weakness or paresthesias, dizziness, unsteady gait, seizure, mental status changes, bladder or bowel incontinence PSYCHIATRIC: Absent: anxiety, depression, suicidal or homicidal ideation, hallucinations. PHYSICAL EXAMINATION Vital Signs - 24 hr 02/05/19 02/05/19 02/06/19 22:03 23:04 01:58 Temperature 98.4 F Pulse Rate 78 Pulse Rate [ 69 Right] Respiratory 20 18 Rate Blood Pressure 128/81 Blood Pressure 124/80 [Left Arm] O2 Sat by Pulse 97 97 99 Oximetry (%) GENERAL: Awake, alert, and fully oriented, in no acute distress. HEAD: Normal with no signs of trauma. EYES: PERRLA, EOMI, sclera anicteric, conjunctiva clear. EARS, NOSE, THROAT: Ears normal, oropharynx clear without exudates. Dry mucous membranes. NECK: Normal range of motion, supple without lymphadenopathy, JVD, or masses. LUNGS: Breath sounds equal, clear to auscultation bilaterally. HEART: Regular rate and rhythm, normal S1 and S2 without murmur, rub or gallop. ABDOMEN: Soft, +LLQ and left flank tenderness, not distended, normoactive bowel sounds, no guarding, no masses. MUSCULOSKELETAL: Normal range of motion at all joints. +Left CVA tenderness. UPPER EXTREMITIES: 2+ pulses, warm, well-perfused. No peripheral edema. LOWER EXTREMITIES: 2+ pulses, warm, well-perfused. No peripheral edema. NEUROLOGICAL: AAOx3. Cranial nerves II-XII intact. Motor strength 5/5, sensation intact. Normal speech. Normal gait. PSYCHIATRIC: Cooperative. Good eye contact. Appropriate mood and affect. SKIN: Warm, dry, normal turgor, no rashes or lesions noted. Laboratory Results - last 24 hr 02/05/19 02/05/19 02/05/19 22:30 22:30 22:30 WBC Cancelled Corrected WBC (auto) Cancelled RBC Cancelled Hgb Cancelled Hct Cancelled MCV Cancelled MCH Cancelled MCHC Cancelled RDW Cancelled Plt Count Cancelled MPV Cancelled Absolute Neuts (auto) Cancelled Neutrophils % Cancelled Lymphocytes % Cancelled Monocytes % Cancelled Eosinophils % Cancelled Basophils % Cancelled Nucleated RBC % Cancelled Platelet Estimate Cancelled Platelet Comment Cancelled Sodium 135 L Potassium 4.2 Chloride 102 Carbon Dioxide 24 Anion Gap 8 BUN 15 Creatinine 1.9 H Creat Clearance w eGFR 35.02 Random Glucose 151 H Lactic Acid 1.1 Calcium 10.0 Total Bilirubin 0.9 AST 22 ALT 35 Alkaline Phosphatase 79 Total Protein 7.7 Albumin 4.1 Lipase Urine Color Urine Appearance Urine pH Ur Specific [place] Urine Protein Urine Glucose (UA) Urine Ketones Urine Blood Urine Nitrite Urine Bilirubin Urine Urobilinogen Ur Leukocyte Esterase Ur Random Sodium 02/05/19 02/05/19 02/05/19 22:30 23:15 23:30 WBC 9.0 Corrected WBC (auto) RBC 4.69 Hgb 14.6 Hct 41.5 MCV 88.5 MCH 31.1 MCHC 35.2 RDW 13.7 Plt Count 185 D MPV 8.9 Absolute Neuts (auto) 7.6 Neutrophils % 84.9 H D Lymphocytes % 7.5 L D Monocytes % 7.2 Eosinophils % 0.2 D Basophils % 0.2 Nucleated RBC % 0 Platelet Estimate Platelet Comment Sodium Potassium Chloride Carbon Dioxide Anion Gap BUN Creatinine Creat Clearance w eGFR Random Glucose Lactic Acid Calcium Total Bilirubin AST ALT Alkaline Phosphatase Total Protein Albumin Lipase 80 Urine Color Ltyellow Urine Appearance Clear Urine pH 6.0 Ur Specific [place] 1.015 Urine Protein Negative Urine Glucose (UA) Negative Urine Ketones Trace H Urine Blood Negative Urine Nitrite Negative Urine Bilirubin Negative Urine Urobilinogen Negative Ur Leukocyte Esterase Negative Ur Random Sodium 02/05/19 23:30 WBC Corrected WBC (auto) RBC Hgb Hct MCV MCH MCHC RDW Plt Count MPV Absolute Neuts (auto) Neutrophils % Lymphocytes % Monocytes % Eosinophils % Basophils % Nucleated RBC % Platelet Estimate Platelet Comment Sodium Potassium Chloride Carbon Dioxide Anion Gap BUN Creatinine Creat Clearance w eGFR Random Glucose Lactic Acid Calcium Total Bilirubin AST ALT Alkaline Phosphatase Total Protein Albumin Lipase Urine Color Urine Appearance Urine pH Ur Specific [place] Urine Protein Urine Glucose (UA) Urine Ketones Urine Blood Urine Nitrite Urine Bilirubin Urine Urobilinogen Ur Leukocyte Esterase Ur Random Sodium 122 ASSESSMENT/PLAN: Patient is a 73 year old male with past medical history of diverticulosis with diverticulitis and chronic low back pain, presented to the ED due to 3 week history of left flank pain and multiple episodes of NBNB vomiting for 1 day. #Acute kidney injury likely 2/2 obstructive uropathy vs dehydration -CT abdomen/pelvis with contrast: 1.4 cm stone mid left ureter causing moderate hydronephrosis. Small stones and small cyst in the right kidney. Diverticulosis without acute diverticulitis. -BUN/Cr 15/1.9, FeNa 0.9% -IV fluids -Pain management with Tylenol and Morphine PRN -NPO -Tamsulosin 0.4mg daily -Zofran PRN for nausea/vomiting -Urology (Dr. Baker) consulted. #FEN -IV LR @100cc/hr -Electrolytes wnl, routine bmp monitoring -NPO #Prophylaxis -SCDs, early ambulation #Disposition -full code -admit to med-surg
--- NOTE | 2019-02-06 02:26 | PN ---
Teaching Attending Note Name of Resident: Eduarda Delgado ATTENDING PHYSICIAN STATEMENT I saw and evaluated the patient. I reviewed the resident's note and discussed the case with the resident. I agree with the resident's findings and plan as documented. SUBJECTIVE: Patient seen and examined; please refer to resident note for further historical details. Briefly, this is a 73 y/o male presenting to the ER for 3 week history of intermitted L-flank pain, moderate in severity somewhat helped by APAP and aggrivated by lying on his left. Had 15 episodes of NBNB vomitus today ; due to this he came to the ER. In the ER he was noted to not have vomiting but was found to have a 1.4cm stone L-uteter and moderate L-hydro. Denies fevers, chills, etc. Urology called by ER will see patient in the AM; appreciate expert opinion. 10 sys ROS done and negative aside from HPI PMH (diverticulosis, chronic back), PSH, Family hx, Social hx reviewed only on home ASA OBJECTIVE: VS, labs, imaging reviewed NAD, AAO, resting comfortbaly in bed NC AT EOMI PERRLA Mild L-flank pain, ND, +BS RRR s1/2 no mgr Lungs CTAB, w/ sym exp CN2-12 wnl, no fnd Normal mood, appropriate behavior Prelim report discussed in HPI; final report pending ASSESSMENT AND PLAN: Presents for obstructive uropathy 2/2 L-ureteral stone; urology to see. Stable. 1) Obstructive uropathy -Stone not likely to pass on it's own. Will start 0.4 tams and monitor. Pain and nausea control. NPO for procedure. Early ambulation/scd's for dvt ppx, hold his home ASA. Monitor Cr and UOP. Should go down post procedure 2) Hyperglycemia -150s; check A1c 3) ANDREI -2/2 #1 but will calculate FeNa FENA -LR@100 -PRN replete -NPO -Early ambulation
[2019-02-06] MEDS: ACETAMINOPHEN 1000 MG/100 ML VIAL (NON FORMULARY) IVPB PRN ×2 (02:52→10:34)
[2019-02-06] MEDS: LACTATED RINGERS SOLUTION 1,000 ML/1,000 ML INFUS.BAG IV SCH ×2 (02:53→10:01)
[2019-02-06 03:36] VITALS: BMI 30.3
[2019-02-06 06:51] LABS: BASO % 0.4 % (0-2.0); EOS % 0.6 % (0-4.5); HEMATOCRIT 41.6 % (35.4-49); HEMOGLOBIN 14.4 GM/dL (11.7-16.9); LYMPH % 20.7 % (8-40); MCH 30.6 pg (25.7-33.7); MCHC 34.7 g/dl (32.0-35.9); MEAN PLT VOLUME 8.7 fl (7.5-11.1); MONO % 9.5 % (3.8-10.2); NEUT % 68.8 % (42.8-82.8); PLATELET COUNT 184 K/MM3 (134-434); RBC 4.72 M/mm3 (4.00-5.60); RDW 13.8 % (11.9-15.9); WHITE BLOOD COUNT 7.2 K/mm3 (4.0-10.0)
[2019-02-06 07:20] LABS: ANION GAP 7 MMOL/L (8-16); BLOOD UREA NITROGEN 13 mg/dL (7-18); CALCIUM 9.2 mg/dL (8.5-10.1); CHLORIDE 106 mmol/L (98-107); CO2 26 mmol/L (21-32); CREATININE 1.6 mg/dL (0.55-1.3); GLUCOSE,RANDOM 101 mg/dL (74-106); MAGNESIUM 1.9 mg/dL (1.8-2.4); PHOSPHOROUS 2.8 mg/dL (2.5-4.9); POTASSIUM 4.1 mmol/L (3.5-5.1); SODIUM 139 mmol/L (136-145)
[2019-02-06 07:21] LABS: INR 1.02 (0.83-1.09)
[2019-02-06] MEDS: morphine SULFATE 4 MG/ML VIAL IVPUSH PRN ×2 (07:22→12:44)
[2019-02-06 07:24] LABS: ACTIVATED PTT 25.6 SECONDS (25.2-36.5)
[2019-02-06] MEDS ORDERED: TAMSULOSIN HCL 0.4 MG CAP PO SCH (08:30)
--- NOTE | 2019-02-06 09:15 | PN ---
Physical Exam: SUBJECTIVE: Patient seen and examined at bedside. no acute events since admission. pain improved. denies fever,chills, cp, sob, diarrhea. did have an episode of v/n when he walked to bathroom in AM OBJECTIVE: Vital Signs Period Temp Pulse Resp BP Sys/Munroe Pulse Ox Last 24 Hr 98.4 F-98.5 F 60-78 18-20 124-156/79-85 96-99 GENERAL: Awake, alert, and fully oriented, in no acute distress. HEAD: Normal with no signs of trauma. EYES: PERRLA, EOMI, sclera anicteric, conjunctiva clear. EARS, NOSE, THROAT: Ears normal, oropharynx clear without exudates. Dry mucous membranes. NECK: Normal range of motion, supple without lymphadenopathy, JVD, or masses. LUNGS: Breath sounds equal, clear to auscultation bilaterally. HEART: Regular rate and rhythm, normal S1 and S2 without murmur, rub or gallop. ABDOMEN: Soft, +LLQ and left flank tenderness, not distended, normoactive bowel sounds, no guarding, no masses. MUSCULOSKELETAL: Normal range of motion at all joints. no CVA tenderness. UPPER EXTREMITIES: 2+ pulses, warm, well-perfused. No peripheral edema. LOWER EXTREMITIES: 2+ pulses, warm, well-perfused. No peripheral edema. NEUROLOGICAL: AAOx3. Cranial nerves II-XII intact. Motor strength 5/5, sensation intact. Normal speech. PSYCHIATRIC: Cooperative. Good eye contact. Appropriate mood and affect. SKIN: Warm, dry, normal turgor, no rashes or lesions noted. Laboratory Results - last 24 hr 02/05/19 02/05/19 02/05/19 22:30 22:30 22:30 WBC Cancelled Corrected WBC (auto) Cancelled RBC Cancelled Hgb Cancelled Hct Cancelled MCV Cancelled MCH Cancelled MCHC Cancelled RDW Cancelled Plt Count Cancelled MPV Cancelled Absolute Neuts (auto) Cancelled Neutrophils % Cancelled Lymphocytes % Cancelled Monocytes % Cancelled Eosinophils % Cancelled Basophils % Cancelled Nucleated RBC % Cancelled Platelet Estimate Cancelled Platelet Comment Cancelled PT with INR INR PTT (Actin FS) Sodium 135 L Potassium 4.2 Chloride 102 Carbon Dioxide 24 Anion Gap 8 BUN 15 Creatinine 1.9 H Creat Clearance w eGFR 35.02 Random Glucose 151 H Hemoglobin A1c % Lactic Acid 1.1 Calcium 10.0 Phosphorus Magnesium Total Bilirubin 0.9 AST 22 ALT 35 Alkaline Phosphatase 79 Total Protein 7.7 Albumin 4.1 Lipase Urine Color Urine Appearance Urine pH Ur Specific [place] Urine Protein Urine Glucose (UA) Urine Ketones Urine Blood Urine Nitrite Urine Bilirubin Urine Urobilinogen Ur Leukocyte Esterase Ur Random Sodium Urine Creatinine 02/05/19 02/05/19 02/05/19 22:30 23:15 23:30 WBC 9.0 Corrected WBC (auto) RBC 4.69 Hgb 14.6 Hct 41.5 MCV 88.5 MCH 31.1 MCHC 35.2 RDW 13.7 Plt Count 185 D MPV 8.9 Absolute Neuts (auto) 7.6 Neutrophils % 84.9 H D Lymphocytes % 7.5 L D Monocytes % 7.2 Eosinophils % 0.2 D Basophils % 0.2 Nucleated RBC % 0 Platelet Estimate Platelet Comment PT with INR INR PTT (Actin FS) Sodium Potassium Chloride Carbon Dioxide Anion Gap BUN Creatinine Creat Clearance w eGFR Random Glucose Hemoglobin A1c % Lactic Acid Calcium Phosphorus Magnesium Total Bilirubin AST ALT Alkaline Phosphatase Total Protein Albumin Lipase 80 Urine Color Ltyellow Urine Appearance Clear Urine pH 6.0 Ur Specific [place] 1.015 Urine Protein Negative Urine Glucose (UA) Negative Urine Ketones Trace H Urine Blood Negative Urine Nitrite Negative Urine Bilirubin Negative Urine Urobilinogen Negative Ur Leukocyte Esterase Negative Ur Random Sodium Urine Creatinine 02/05/19 02/06/19 02/06/19 23:30 06:15 06:15 WBC 7.2 Corrected WBC (auto) RBC 4.72 Hgb 14.4 Hct 41.6 MCV 88.0 MCH 30.6 MCHC 34.7 RDW 13.8 Plt Count 184 MPV 8.7 Absolute Neuts (auto) 5.0 Neutrophils % 68.8 Lymphocytes % 20.7 D Monocytes % 9.5 Eosinophils % 0.6 D Basophils % 0.4 Nucleated RBC % 0 Platelet Estimate Platelet Comment PT with INR INR PTT (Actin FS) Sodium 139 Potassium 4.1 Chloride 106 Carbon Dioxide 26 Anion Gap 7 L BUN 13 Creatinine 1.6 H Creat Clearance w eGFR 42.70 Random Glucose 101 Hemoglobin A1c % Lactic Acid Calcium 9.2 Phosphorus 2.8 Magnesium 1.9 Total Bilirubin AST ALT Alkaline Phosphatase Total Protein Albumin Lipase Urine Color Urine Appearance Urine pH Ur Specific [place] Urine Protein Urine Glucose (UA) Urine Ketones Urine Blood Urine Nitrite Urine Bilirubin Urine Urobilinogen Ur Leukocyte Esterase Ur Random Sodium 122 Urine Creatinine 185.0 02/06/19 02/06/19 06:15 06:15 WBC Corrected WBC (auto) RBC Hgb Hct MCV MCH MCHC RDW Plt Count MPV Absolute Neuts (auto) Neutrophils % Lymphocytes % Monocytes % Eosinophils % Basophils % Nucleated RBC % Platelet Estimate Platelet Comment PT with INR 12.00 INR 1.02 PTT (Actin FS) 25.6 Sodium Potassium Chloride Carbon Dioxide Anion Gap BUN Creatinine Creat Clearance w eGFR Random Glucose Hemoglobin A1c % 5.5 Lactic Acid Calcium Phosphorus Magnesium Total Bilirubin AST ALT Alkaline Phosphatase Total Protein Albumin Lipase Urine Color Urine Appearance Urine pH Ur Specific [place] Urine Protein Urine Glucose (UA) Urine Ketones Urine Blood Urine Nitrite Urine Bilirubin Urine Urobilinogen Ur Leukocyte Esterase Ur Random Sodium Urine Creatinine Active Medications Generic Name Dose Route Start Last Admin Trade Name Freq PRN Reason Stop Dose Admin Acetaminophen 1,000 mg 02/06/19 01:50 02/06/19 02:52 Ofirmev Injection - IVPB 1,000 mg Q6H PRN Administration PAIN OR FEVER Lactated Ringer's 1,000 ml in 1,000 mls @ 100 mls/hr 02/06/19 03:00 02/06/19 02:53 Lactated Ringers Solution IV 100 mls/hr ASDIR SHAYY Administration Morphine Sulfate 4 mg 02/06/19 02:25 02/06/19 07:22 Morphine Sulfate IVPUSH 4 mg Q4H PRN Administration PAIN LEVEL 7 - 10 Ondansetron HCl 4 mg 02/06/19 01:50 Zofran Injection IVPUSH Q8H PRN NAUSEA AND/OR VOMITING Tamsulosin HCl 0.4 mg 02/06/19 08:30 Flomax - PO DAILY@0830 [facility] ASSESSMENT/PLAN: 73 year old male with past medical history of diverticulosis with diverticulitis and chronic low back pain, presented to the ED due to 3 week history of left flank pain and multiple episodes of NBNB vomiting for 1 day. #Acute kidney injury likely 2/2 obstructive uropathy vs dehydration - improving , cr 1.9 to 1.6 -CT abdomen/pelvis with contrast: 1.4 cm stone mid left ureter causing moderate hydronephrosis. Small stones and small cyst in the right kidney. Diverticulosis without acute diverticulitis. -IV fluids -Pain management with Tylenol and Morphine PRN -NPO -Tamsulosin 0.4mg daily -Zofran PRN for nausea/vomiting -f/u w/ Urology (Dr. Baker) consulted. -A1c 5.5 #FEN -IV LR @100cc/hr -Electrolytes wnl, routine bmp monitoring -NPO #Prophylaxis -SCDs, early ambulation #Disposition -full code -med-surg Visit type - Emergency Visit Emergency Visit: Yes ED Registration Date: 02/06/19 Care time: The patient presented to the Emergency Department on the above date and was hospitalized for further evaluation of their emergent condition. - New Patient This patient is new to me today: Yes Date on this admission: 02/06/19 - Critical Care Critical Care patient: No
--- NOTE | 2019-02-06 10:32 | EKG ---
Test Reason : Blood Pressure : / mmHG Vent. Rate : 064 BPM Atrial Rate : 064 BPM P-R Int : 180 ms QRS Dur : 098 ms QT Int : 396 ms P-R-T Axes : 052 -42 -07 degrees QTc Int : 408 ms NORMAL SINUS RHYTHM POSSIBLE LEFT ATRIAL ENLARGEMENT LEFT AXIS DEVIATION INCOMPLETE RIGHT BUNDLE BRANCH BLOCK ABNORMAL ECG WHEN COMPARED WITH ECG OF 02-NOV-2017 12:26, NO SIGNIFICANT CHANGE WAS FOUND Confirmed by EASTON MONCADA, LAMAR ([id number]) on 02/06/2019 10:32:32 AM Referred By: Confirmed By:LAMAR MCCORMACK MD
--- NOTE | 2019-02-06 13:49 | PN ---
Teaching Attending Note Name of Resident: Krishan Davalos ATTENDING PHYSICIAN STATEMENT I saw and evaluated the patient. I reviewed the resident's note and discussed the case with the resident. I agree with the resident's findings and plan as documented. SUBJECTIVE:states pain is much improved since arrival. pain medications are also helping. denies Cp, SOB, fever, chills, N/V/C/D, hematuria this is his 1st episode. no family hx of kidney stones OBJECTIVE: Last Vital Signs Temp Pulse Resp BP Pulse Ox 98.5 F 60 20 156/85 96 02/06/19 07:37 02/06/19 07:37 02/06/19 07:37 02/06/19 07:37 02/06/19 09:00 General NAD CV S1 S2 RRR no murmur/rub/gallop Lungs CTA B?L no wheezing/rales/rhonchi Abdomen soft +L flank pain no rebound or guarding ASSESSMENT AND PLAN: 73yo M with no PMH presented to the ER with L flank pain assoc with nausea and vomiting. On CT was found to have 1.4cm stone with moderate hydronephrosis 1. Nephrolithasis- NPO for possible intervention. Cont IVF, flomax, pain control. urology on board 2. ANDREI with hydronephrosis due to obstructive uropathy- likely to resolve once stone is removed. cont IVF. avoid nephrotoxic agents 3. hyperglycemia- due to stress. A1c 5.5 no further treatment 4. DVT ppx- EAM 5. anticipate discharge in next 24H
[2019-02-06] MEDS ORDERED: CEFTRIAXONE 1 GM in DEXTROSE 5%-WATER - 50 ML IVPB ONE (15:47)
[2019-02-06] MEDS ORDERED: DEXTROSE 5%-WATER - 50 ML IVPB ONE (15:53)
[2019-02-06] MEDS ORDERED: cefTRIAXone SODIUM 1 GM VIAL ONE (15:53)
[2019-02-06] MEDS ORDERED: SODIUM CHLORIDE 1,000 ML IV SCH ×2 (16:00→20:06)
--- NOTE | 2019-02-06 18:45 | CON.GU ---
Consult - History of Present Illness History of Present Illness: 73 yo male with no prior urologic history, admiited with abdominal pain secondary to a 1.3cm obstructing left mid ureteral stone. Baseline creatinine is normal but creatinine on admission is 1.9. No fever/chills - Past Surgical History Past Surgical History: Yes: Cholecystectomy - Alcohol/Substance Use Hx Alcohol Use: No History of Substance Use: reports: None - Smoking History Smoking history: Never smoked Have you smoked in the past 12 months: No - Social History ADL: Independent History of Recent Travel: No Home Medications - Allergies Allergies/Adverse Reactions: Allergies Allergy/AdvReac Type Severity Reaction Status Date / Time No Known Allergies Allergy Verified 02/05/19 22:05 - Home Medications Home Medications: Ambulatory Orders Aspirin 81 mg PO DAILY 02/05/19 Albuterol Sulfate [Proair Hfa] 8.5 gm IH Q4H PRN 02/06/19 Family Disease History - Family Disease History Family Disease History: Other: Father ( in the war), Mother (no medical issues) Review of Systems - Review of Systems Genitourinary: reports: No Symptoms Physical Exam- Vital Signs: Vital Signs Temperature 99.0 F 02/06/19 14:55 Pulse Rate 63 02/06/19 14:55 Respiratory Rate 20 02/06/19 14:55 Blood Pressure 154/76 02/06/19 14:55 O2 Sat by Pulse Oximetry (%) 96 02/06/19 09:00 Kidneys: Yes: Flank Pain Left Labs: CBC, BMP 02/06/19 06:15 02/06/19 06:15 Imaging - Results Cat Scan: Image Reviewed Problem List - Problems (1) Left ureteral stone Assessment/Plan: plan for cysto/left ureteral stent placement in light of obstruction and worsening renal function. Will require lithotripsy at a later date Code(s): N20.1 - CALCULUS OF URETER
[2019-02-06] MEDS ORDERED: LACTATED RINGERS SOLUTION 1,000 ML IV SCH ×2 (19:15→20:06)
[2019-02-06] MEDS ORDERED: PROPOFOL 20 ML ONE (19:20)
[2019-02-06] MEDS ORDERED: DEXAMETHASONE SOD PHOSPHATE 4 MG/1 ML VIAL ONE (19:42)
--- NOTE | 2019-02-06 19:52 | OP ---
Operative Note - Note: Pre-Operative Diagnosis: obstructimg left ureteral stone Operation: cysto/stent Post-Operative Diagnosis: Same as Pre-op Surgeon: Tereso Baker Anesthesia: General Operative Report Dictated: Yes
[2019-02-06] MEDS ORDERED: ACETAMINOPHEN 1000 MG/100 ML VIAL (NON FORMULARY) IVPB PRN (20:06)
[2019-02-06] MEDS ORDERED: morphine SULFATE 4 MG/ML VIAL IVPUSH PRN (20:06)
[2019-02-07] MEDS ORDERED: LACTATED RINGERS SOLUTION 1,000 ML IV SCH ×2 (06:58→07:40)
[2019-02-07 08:00] LABS: HEMATOCRIT 40.5 % (35.4-49); HEMOGLOBIN 14.2 GM/dL (11.7-16.9); MCH 30.7 pg (25.7-33.7); MEAN CELL VOLUME 87.8 fl (80-96); MEAN PLT VOLUME 8.7 fl (7.5-11.1); PLATELET COUNT 224 K/MM3 (134-434); RBC 4.61 M/mm3 (4.00-5.60); RDW 13.7 % (11.9-15.9); WHITE BLOOD COUNT 7.7 K/mm3 (4.0-10.0)
[2019-02-07] MEDS ORDERED: TAMSULOSIN HCL 0.4 MG CAP PO SCH (08:30)
[2019-02-07 08:37] LABS: ANION GAP 6 MMOL/L (8-16); BLOOD UREA NITROGEN 16 mg/dL (7-18); CALCIUM 9.8 mg/dL (8.5-10.1); CHLORIDE 103 mmol/L (98-107); CO2 29 mmol/L (21-32); CREATININE 1.4 mg/dL (0.55-1.3); GLUCOSE,RANDOM 187 mg/dL (74-106); POTASSIUM 4.4 mmol/L (3.5-5.1); SODIUM 138 mmol/L (136-145)
--- NOTE | 2019-02-07 08:45 | PN ---
Progress Note (short form) - Note Progress Note: afebrile s/p left stent placement yesterday feels better KUB today creat decreased to 1.4 will need outpt f/u for lithotripsy Problem List - Problems (1) Left ureteral stone Code(s): N20.1 - CALCULUS OF URETER
--- NOTE | 2019-02-07 11:08 | PN ---
Progress Note, Physician Chief Complaint: Nephrolithiasis S/P ureteral stent History of Present Illness: Pre-Operative Diagnosis: obstructimg left ureteral stone Operation: cysto/stent Post-Operative Diagnosis: Same as Pre-op Surgeon: Tereso Baker Anesthesia: General Operative Report Dictated: Yes NAD Cr trending down - Current Medication List Current Medications: Active Medications Acetaminophen (Ofirmev Injection -) 1,000 mg IVPB Q6H PRN PRN Reason: PAIN LEVEL 4 - 6 Lactated Ringer's (Lactated Ringers Solution) 1,000 mls @ 125 mls/hr IV [facility] Last Admin: 02/07/19 08:11 Dose: 125 mls/hr Morphine Sulfate (Morphine Sulfate) 4 mg IVPUSH Q4H PRN PRN Reason: PAIN LEVEL 7 - 10 Ondansetron HCl (Zofran Injection) 4 mg IVPUSH Q8H PRN PRN Reason: NAUSEA AND/OR VOMITING Tamsulosin HCl (Flomax -) 0.4 mg PO DAILY@0830 [facility] Last Admin: 02/07/19 08:08 Dose: 0.4 mg - Objective Vital Signs: Vital Signs Temperature 98.5 F 02/07/19 06:08 Pulse Rate 65 02/07/19 06:08 Respiratory Rate 18 02/07/19 06:08 Blood Pressure 114/69 02/07/19 06:08 O2 Sat by Pulse Oximetry (%) 95 02/07/19 09:00 Constitutional: Yes: Well Nourished, No Distress, Calm Cardiovascular: Yes: Regular Rate and Rhythm Respiratory: Yes: Regular Gastrointestinal: Yes: WNL Genitourinary: Yes: WNL Musculoskeletal: Yes: WNL Extremities: Yes: WNL Edema: No Peripheral Pulses WNL: Yes Neurological: Yes: Alert, Oriented Psychiatric: Yes: Alert, Oriented Labs: CBC, BMP 02/07/19 07:00 02/07/19 07:00 INR, PTT INR 1.02 (0.83-1.09) 02/06/19 06:15 Problem List - Problems (1) ANDREI (acute kidney injury) Assessment/Plan: -Cr trending down -f/u cr outpatient Code(s): N17.9 - ACUTE KIDNEY FAILURE, UNSPECIFIED (2) Hydronephrosis Assessment/Plan: -Seen by Urology -S/P left Ureteral stent Pre-Operative Diagnosis: obstructimg left ureteral stone Operation: cysto/stent Post-Operative Diagnosis: Same as Pre-op Surgeon: Tereso Baker Anesthesia: General Operative Report Dictated: Yes Code(s): N13.30 - UNSPECIFIED HYDRONEPHROSIS Qualifiers: Hydronephrosis type: with ureteral calculous obstruction Qualified Code(s) : N13.2 - Hydronephrosis with renal and ureteral calculous obstruction (3) Left ureteral stone Code(s): N20.1 - CALCULUS OF URETER Assessment/Plan see problem list self ambulatory d/c home with outpatient f/u with Urology and PCP
--- NOTE | 2019-02-07 11:13 | DS ---
Physical Examination Vital Signs: Vital Signs Temperature 98.5 F 02/07/19 06:08 Pulse Rate 65 02/07/19 06:08 Respiratory Rate 18 02/07/19 06:08 Blood Pressure 114/69 02/07/19 06:08 O2 Sat by Pulse Oximetry (%) 95 02/07/19 09:00 Findings/Remarks: Pre-Operative Diagnosis: obstructimg left ureteral stone Operation: cysto/stent Post-Operative Diagnosis: Same as Pre-op Surgeon: Tereso Baker Anesthesia: General Operative Report Dictated: Yes Constitutional: Yes: Well Nourished, No Distress, Calm Cardiovascular: Yes: Regular Rate and Rhythm Respiratory: Yes: Regular Gastrointestinal: Yes: Normal Bowel Sounds, Soft Musculoskeletal: Yes: WNL Extremities: Yes: WNL Edema: No Peripheral Pulses WNL: Yes Neurological: Yes: Alert, Oriented Psychiatric: Yes: Alert, Oriented Labs: CBC, BMP 02/07/19 07:00 02/07/19 07:00 Discharge Summary Reason For Visit: ACUTE KIDNEY INJURY,HYDRO NEPHROSIS Current Active Problems ANDREI (acute kidney injury) (Acute) Hydronephrosis (Acute) Kidney stone (Acute) Left ureteral stone (Acute) Hospital Course: Laboratory Last Values WBC 7.7 K/mm3 (4.0-10.0) 02/07/19 07:00 Corrected WBC (auto) Cancelled 02/05/19 22:30 RBC 4.61 M/mm3 (4.00-5.60) 02/07/19 07:00 Hgb 14.2 GM/dL (11.7-16.9) 02/07/19 07:00 Hct 40.5 % (35.4-49) 02/07/19 07:00 MCV 87.8 fl (80-96) 02/07/19 07:00 MCH 30.7 pg (25.7-33.7) 02/07/19 07:00 MCHC 35.0 g/dl (32.0-35.9) 02/07/19 07:00 RDW 13.7 % (11.9-15.9) 02/07/19 07:00 Plt Count 224 K/MM3 (134-434) D 02/07/19 07:00 MPV 8.7 fl (7.5-11.1) 02/07/19 07:00 Absolute Neuts (auto) 5.0 K/mm3 (1.5-8.0) 02/06/19 06:15 Neutrophils % 68.8 % (42.8-82.8) 02/06/19 06:15 Lymphocytes % 20.7 % (8-40) D 02/06/19 06:15 Monocytes % 9.5 % (3.8-10.2) 02/06/19 06:15 Eosinophils % 0.6 % (0-4.5) D 02/06/19 06:15 Basophils % 0.4 % (0-2.0) 02/06/19 06:15 Nucleated RBC % 0 % (0-0) 02/06/19 06:15 Platelet Estimate Cancelled 02/05/19 22:30 Platelet Comment Cancelled 02/05/19 22:30 PT with INR 12.00 SEC (9.7-13.0) 02/06/19 06:15 INR 1.02 (0.83-1.09) 02/06/19 06:15 PTT (Actin FS) 25.6 SECONDS (25.2-36.5) 02/06/19 06:15 Sodium 138 mmol/L (136-145) 02/07/19 07:00 Potassium 4.4 mmol/L (3.5-5.1) 02/07/19 07:00 Chloride 103 mmol/L (98-107) 02/07/19 07:00 Carbon Dioxide 29 mmol/L (21-32) 02/07/19 07:00 Anion Gap 6 MMOL/L (8-16) L 02/07/19 07:00 BUN 16 mg/dL (7-18) 02/07/19 07:00 Creatinine 1.4 mg/dL (0.55-1.3) H 02/07/19 07:00 Creat Clearance w eGFR 49.82 (>60) 02/07/19 07:00 Random Glucose 187 mg/dL (74-106) H 02/07/19 07:00 Hemoglobin A1c % 5.5 % (4.2-6.3) 02/06/19 06:15 Lactic Acid 1.1 mmol/L (0.4-2.0) 02/05/19 22:30 Calcium 9.8 mg/dL (8.5-10.1) 02/07/19 07:00 Phosphorus 2.8 mg/dL (2.5-4.9) 02/06/19 06:15 Magnesium 1.9 mg/dL (1.8-2.4) 02/06/19 06:15 Total Bilirubin 0.9 mg/dL (0.2-1) 02/05/19 22:30 AST 22 U/L (15-37) 02/05/19 22:30 ALT 35 U/L (13-61) 02/05/19 22:30 Alkaline Phosphatase 79 U/L (45-117) 02/05/19 22:30 Total Protein 7.7 g/dl (6.4-8.2) 02/05/19 22:30 Albumin 4.1 g/dl (3.4-5.0) 02/05/19 22:30 Lipase 80 U/L (73-393) 02/05/19 22:30 Urine Color Ltyellow 02/05/19 23:30 Urine Appearance Clear 02/05/19 23:30 Urine pH 6.0 (5.0-8.0) 02/05/19 23:30 Ur Specific [place] 1.015 (1.010-1.035) 02/05/19 23:30 Urine Protein Negative (NEGATIVE) 02/05/19 23:30 Urine Glucose (UA) Negative (NEGATIVE) 02/05/19 23:30 Urine Ketones Trace (NEGATIVE) H 02/05/19 23:30 Urine Blood Negative (NEGATIVE) 02/05/19 23:30 Urine Nitrite Negative (NEGATIVE) 02/05/19 23:30 Urine Bilirubin Negative (<2.0 mg/dL) 02/05/19 23:30 Urine Urobilinogen Negative mg/dL (0.2-1.0) 02/05/19 23:30 Ur Leukocyte Esterase Negative (NEGATIVE) 02/05/19 23:30 Ur Random Sodium 122 MMOL/L (40-220) 02/05/19 23:30 Urine Creatinine 185.0 mg/dL (20-320) 02/05/19 23:30 Blood Type O POSITIVE 02/07/19 07:00 Antibody Screen Negative 02/07/19 07:00 Microbiology 02/05/19 23:30 Urine - Urine Clean Catch Urine Culture - Final NO GROWTH OBTAINED Vital Signs Temp 98.5 F 02/07/19 06:08 Pulse 65 02/07/19 06:08 Resp 18 02/07/19 06:08 BP 114/69 02/07/19 06:08 Pulse Ox 95 02/07/19 09:00 Intake & Output 02/06/19 02/06/19 02/07/19 11:59 23:59 11:59 Intake Total 550 1600 300 Balance 550 1600 300 Weight 93.123 kg Intake: IV 450 1600 LACTATED RINGERS SOLUTION 450 800 1,000 ml In 1,000 ml @ 100 mls/hr IV ASDIR SHAYY Rx#:[id number] IVPB 100 Oral 0 300 Other: Voiding Method Toilet Toilet Toilet # Unmeasured Voids Void 2 Bowel Movement No # Bowel Movements 0 Height 5 ft 9 in Body Mass Index (BMI) 30.3 Weight Measurement Method Built in [facility] Condition: Improved - Instructions Diet, Activity, Other Instructions: you came in for abdominal pain and were found with a kidney stone. you were seen by the urologist Dr Baker and he placed a stent in the kidney to help relieve the blockage in your kidney. you will need to see Dr Dr Baker in for a lithotripsy procedure that will help break up the stone and help with it passing. Please resume your home meds You may need to have an out patient work up for why you are getting kidney stones, please discuss this with your primary care physician Please drink plenty of water, at least 2 liters per day to help prevent further stones. Please follow up with your primary care physician within 1 week Please follow up with urologist Dr Baker within 1 week Referrals: Tereso Baker MD [Staff Physician] - Mabel Arellano MD [Primary Care Provider] - Disposition: HOME - Home Medications Comprehensive Discharge Medication List: Ambulatory Orders Aspirin 81 mg PO DAILY 02/05/19 Albuterol Sulfate [Proair Hfa] 8.5 gm IH Q4H PRN 02/06/19
--- NOTE | 2019-02-07 11:19 | PN ---
Progress Note (short form) - Note Progress Note: POD1 s/p cysto with stent for stone, under GA. Pt doing well today, no anesthetic issues/complications. Expected to be discharged home today.
--- NOTE | 2019-02-07 11:25 | OP ---
DATE OF OPERATION: 02/06/2019 PREOPERATIVE DIAGNOSIS: Obstructing left ureteral stone. POSTOPERATIVE DIAGNOSIS: Obstructing left ureteral stone. PROCEDURE: Cystoscopy, retrograde pyelogram, stent placement. SURGEON: Tereso Baker MD INDICATION: Patient is a 73-year-old male admitted with an obstructing 1.5-cm left mid ureteral stone he is taken to the OR for cystoscopy, stent placement. Patient taken to the OR. Placed supine on the operating table. After cardiac monitoring administered and general anesthesia established he was prepped and draped in the dorsal lithotomy position. He had been given ceftriaxone approximately 2 hours prior to his procedure. The rigid cystoscope was inserted into the urethra without difficulty. Anterior urethra was normal. Prostatic urethra was 3 cm and visually occlusive. The bladder was visualized. No tumors or stones noted in the bladder. Attention turned to the left ureteral orifice. This was intubated with a ureteral catheter. Contrast injected for a retrograde pyelogram. There was hydroureteronephrosis to the mid ureter where a large stone was seen. A guidewire was advanced beyond the stone into the left renal pelvis and over the guidewire a 7-[place], 24-cm double-pigtail stent was then advanced in a monorail fashion. Fluoroscopy confirmed this to be in good position. Patient was then awoken from anesthesia and transferred to the recovery room in stable condition. There were no complications. Estimated blood loss minimal. Joy [id number]
[2019-02-07 11:49] VITALS: BP 140/75; PULSE 86; TEMP 98.6
== END 2019-02-07 14:01 | disposition home or self-care (01) | DRG 661 ==
LOC: JER 22:01 → SUPCPDRO 22:01 → JERBED 02-06 00:41 → J6S 02-06 02:44
PROVIDERS: ADMIT Internal Medicine
PROC: 0T778DZ Dilation of Left Ureter with Intraluminal Device, Via Natural or Artificial Opening Endoscopic (ICD-10-PCS; principal; 2019-02-06 13:30)
PROC: BT1FZZZ Fluoroscopy of Left Kidney, Ureter and Bladder (ICD-10-PCS; 2019-02-06 13:30)
DX: N13.2 Hydronephrosis with renal and ureteral calculous obstruction (principal); N17.9 Acute kidney failure, unspecified; E86.0 Dehydration; R73.9 Hyperglycemia, unspecified
CPT/HCPCS: 36415; 74018-TC-FY; 74176-TC; 76000-TC-FY; 80048; 80053; 81003; 82570; 83036; 83605; 83690; 83735; 84100; 84300; 85025; 85027; 85610; 85730; 86850; 86900; 86901; 87086; 93005; 93010; 94760; 99285-25; J0131; J7030

== ENCOUNTER 2019-03-02 06:12 | Day surgery (SDC) | payer OTHER ==
[2019-02-28 08:36] VITALS: BMI 31.3
[2019-03-02] MEDS ORDERED: DEXAMETHASONE SOD PHOSPHATE 4 MG/1 ML VIAL ONE (09:14)
[2019-03-02] MEDS ORDERED: LIDOCAINE HCL/PF 2% SDV 5ML VIAL ONE (09:14)
[2019-03-02] MEDS ORDERED: PROPOFOL 20 ML ONE (09:24)
[2019-03-02] MEDS ORDERED: oxyCODONE HCL 5 MG TABLET PO PRN ×2 (09:38→10:03)
[2019-03-02] MEDS ORDERED: ONDANSETRON 4 MG/2 ML VIAL IVPUSH PRN (09:38)
[2019-03-02] MEDS ORDERED: FUROSEMIDE 40 MG/4 ML INJECTABLE VIAL ONE (09:44)
[2019-03-02] MEDS ORDERED: LACTATED RINGERS SOLUTION 1,000 ML IV SCH (09:45)
--- NOTE | 2019-03-02 10:05 | OP ---
Operative Note - Note: Operative Date: 03/02/19 Pre-Operative Diagnosis: KATHYA stone Operation: cysto/retro/left urs/laser litho/stent Findings: as above Post-Operative Diagnosis: Same as Pre-op Anesthesia: General Specimens Removed: stone Estimated Blood Loss (mls): 0 Drains & Tubes with Location: 8fr, 24 cm stent Operative Report Dictated: Yes
[2019-03-02] MEDS ORDERED: DEXTROSE 5%-0.45% SALINE 1,000 ML IV SCH (10:15)
--- NOTE | 2019-03-02 10:39 | OP ---
DATE OF OPERATION: 03/02/2019 PREOPERATIVE DIAGNOSIS: Large right proximal ureteral stone. POSTOPERATIVE DIAGNOSIS: Large right proximal ureteral stone. PROCEDURE: Cystoscopy, ureteroscopy, laser lithotripsy, stone basketing, stent placement. SURGEON: Odalys Bartholomew MD INDICATION: Patient is a 73-year-old male with is status post stent placement for an obstructing left ureteral stone several weeks ago who was taken to the OR now for treatment of stone. DESCRIPTION OF PROCEDURE: Patient was taken to the OR and placed supine on the table. After cardiac monitoring was administered and general anesthesia was established, he was prepped and draped in dorsal lithotomy position. He was given 500 mg of IV Levaquin. The cystoscope was introduced without difficulty and into the bladder. A stent was seen emanating from the left ureteral orifice. Guidewire was advanced alongside the stent into the left renal pelvis. This was confirmed with fluoroscopy. The stent was then removed with a grasper and then a flexible ureteroscope was advanced up to the level of the proximal ureter where a stone was seen impacted in the ureter. Using the 365-micron laser fiber, the stone was pulverized to fine dust in 2- to 3-mm fragments. Some of the fragments were then removed with the stone basket and sent to Pathology for analysis. Repeat ureteroscopy revealed no evidence of any residual ureteral stone fragments. There was ureteral edema and narrowing at the level where the impacted stone was. Ureteroscope was then removed, and an 8-[place] 24-cm double pigtail stent was then advanced in a monorail fashion. Fluoroscopy confirmed the stent to be in position. The patient was then awoken from anesthesia and transferred to recovery in stable condition. There were no complications. Estimated blood loss was zero. OADLYS BARTHOLOMEW M.D. [id number]
[2019-03-02 11:55] VITALS: TEMP 97.5
[2019-03-02 13:09] VITALS: BP 107/64; PULSE 64
--- NOTE | 2019-03-03 17:08 | PATH ---
Surgical Pathology Report Patient Name: SARAH HOLCOMB Med. Rec. #: [id number] /Age/Gender: 1945 (Age: 73) / M Account: [id number] Location: [facility] SURGICAL Taken: 03/02/2019 Received: 03/02/2019 Reported: 03/03/2019 Physicians: Tereso Baker M.D. Specimen(s) Received A: LEFT URETERAL CALCULI B: OLD STENT Clinical History Left ureteral stone Final Diagnosis A. URETERAL STONE, LEFT, LASER LITHOTRIPSY: URETEROLITHIASIS. MACROSCOPIC DIAGNOSIS. B. OLD STENT, REMOVAL: CONSISTENT WITH URETERAL STENT. MACROSCOPIC DIAGNOSIS. Electronically Signed Angela Marinelli M.D. Gross Description A. Received fresh labeled "ureteral stone left," is a 0.2 cm greatest dimension gonzalez, irregular calculus which is sent for chemical analysis. B. Received fresh labeled "old stent," is a 35 cm in length blue-green, coiled portion of tubing, consistent with a ureteral stent. No soft tissue is present. No sections are submitted, gross only. /03/02/2019 saudi03/02/2019
== END 2019-03-02 13:30 | disposition home or self-care (01) ==
LOC: JASU-SURG 06:12
PROVIDERS: ATTEND Urology
PROC: 0TF68ZZ Fragmentation in Right Ureter, Via Natural or Artificial Opening Endoscopic (ICD-10-PCS; principal; 2019-03-02 08:30)
PROC: 0T768DZ Dilation of Right Ureter with Intraluminal Device, Via Natural or Artificial Opening Endoscopic (ICD-10-PCS; 2019-03-02 08:30)
DX: N20.1 Calculus of ureter (principal)
CPT/HCPCS: 36415; 76000-TC-FY; 82360; 88300-TC; 94760

== ENCOUNTER 2021-09-26 13:00 | Inpatient (IN) | payer OTHER ==
[2021-09-26 13:46] LABS: BASO % 0.6 % (0-2.0); EOS % 4.3 % (0-4.5); HEMATOCRIT 41.1 % (35.4-49); HEMOGLOBIN 14.2 GM/dL (11.7-16.9); LYMPH % 31.5 % (8-40); MCH 30.4 pg (25.7-33.7); MCHC 34.5 g/dl (32.0-35.9); MEAN CELL VOLUME 88.1 fl (80-96); MEAN PLT VOLUME 8.3 fl (7.5-11.1); MONO % 10.7 % (3.8-10.2); NEUT % 52.9 % (42.8-82.8); PLATELET COUNT 262 10^3/uL (134-434); RBC 4.66 M/mm3 (4.00-5.60); RDW 13.7 % (11.9-15.9); WHITE BLOOD COUNT 6.4 K/mm3 (4.0-10.0)
[2021-09-26] MEDS ORDERED: ACETAMINOPHEN 1000 MG/100 ML VIAL IVPB ONE (13:53)
[2021-09-26] MEDS ORDERED: SODIUM CHLORIDE 0.9% 500 ML INFUS.BAG IV ONE (13:53)
[2021-09-26 13:58] LABS: CALCIUM 10.4 mg/dL (8.5-10.1); CHLORIDE 104 mmol/L (98-107); SODIUM 140 mmol/L (136-145)
[2021-09-26 13:59] LABS: ALBUMIN 3.9 g/dl (3.4-5.0); ANION GAP 5 MMOL/L (8-16); BLOOD UREA NITROGEN 14.4 mg/dL (7-18); CO2 32 mmol/L (21-32)
[2021-09-26 14:01] LABS: GLUCOSE,RANDOM 117 mg/dL (74-106); LIPASE 79 U/L (73-393)
[2021-09-26 14:03] LABS: CREATININE 1.1 mg/dL (0.55-1.3)
[2021-09-26 14:04] LABS: AMYLASE 43 U/L (25-115); SGOT/AST 29 U/L (15-37); SGPT/ALT 47 U/L (13-61)
[2021-09-26 14:05] LABS: BILIRUBIN,TOTAL 0.4 mg/dL (0.2-1); EPI CELLS 4 /uL (0-25.1); HYALINE CASTS 1 /uL (0-3.1); PH,URINE 5.5 (5.0-8.0); TOT PROT 7.3 g/dl (6.4-8.2); URINE APPEARANCE CLEAR; URINE BACTERIA 10 /uL (0-1359); URINE BILIRUBIN NEGATIVE (NEGATIVE); URINE COLOR YELLOW; URINE GLUCOSE (UA) NEGATIVE (NEGATIVE); URINE KETONE NEGATIVE (NEGATIVE); URINE LEUK ESTERASE TRACE (NEGATIVE); URINE NITRITE NEGATIVE (NEGATIVE); URINE PROTEIN NEGATIVE (NEGATIVE); URINE RBC 45 /uL (0-23.9); URINE UROBILINOGEN 0.2 mg/dL (0.2-1.0); URINE WBC 32 /uL (0-25.8)
[2021-09-26 14:06] LABS: ALK PHOS 79 U/L (45-117)
[2021-09-26] MEDS ORDERED: ACETAMINOPHEN INJECTION 100 ML IVPB ONE (14:11)
[2021-09-26] MEDS ORDERED: morphine SULFATE 4 MG/ML VIAL IVPUSH PRN ×2 (14:49→18:15)
[2021-09-26] MEDS ORDERED: ACETAMINOPHEN 1000 MG/100 ML VIAL IVPB PRN ×2 (14:49→18:15)
[2021-09-26] MEDS ORDERED: CEFTRIAXONE 1 GM in DEXTROSE 5%-WATER - 50 ML IVPB SCH (15:00)
[2021-09-26 15:38] VITALS: BMI 33.4
[2021-09-26] MEDS ORDERED: DEXTROSE 5%-WATER - 50 ML IVPB ONE (15:53)
[2021-09-26] MEDS ORDERED: cefTRIAXone SODIUM 1 GM VIAL ONE (15:53)
[2021-09-26] MEDS ORDERED: MIDAZOLAM HCL 2 MG/2 ML SINGLE DOSE VIAL ONE (16:59)
[2021-09-26] MEDS ORDERED: SUCCINYLCHOLINE CHLORIDE 200 MG/10 ML SYRINGE ONE (17:02)
[2021-09-26] MEDS ORDERED: ePHEDrine SULFATE 50 MG/1 ML AMPULE ONE (17:03)
[2021-09-26] MEDS ORDERED: ONDANSETRON 4 MG/2 ML VIAL IVPUSH PRN (18:42)
[2021-09-26] MEDS ORDERED: ACETAMINOPHEN 325 MG TABLET (FP) PO PRN (18:42)
[2021-09-26] MEDS ORDERED: LACTATED RINGERS SOLUTION 1,000 ML IV SCH (18:45)
[2021-09-27] MEDS ORDERED: TAMSULOSIN HCL 0.4 MG CAP PO SCH ×2 (08:30)
[2021-09-27] MEDS ORDERED: POLYETHYLENE GLYCOL (HEALTHYLAX) 3350 17 GM PACKET PO SCH (10:00)
[2021-09-27 10:58] VITALS: BP 118/66; PULSE 68; TEMP 98
== END 2021-09-27 15:35 | disposition home or self-care (01) | DRG 661 ==
LOC: JER 13:00 → JERBED 13:31 → J6S 15:17
PROVIDERS: ADMIT Internal Medicine; ATTEND Internal Medicine
PROC: BT1DYZZ Fluoroscopy of Right Kidney, Ureter and Bladder using Other Contrast (ICD-10-PCS; 2021-09-26)
PROC: 0T768DZ Dilation of Right Ureter with Intraluminal Device, Via Natural or Artificial Opening Endoscopic (ICD-10-PCS; principal; 2021-09-26 16:56)
DX: N13.2 Hydronephrosis with renal and ureteral calculous obstruction (principal); M54.50 Low back pain, unspecified; N39.0 Urinary tract infection, site not specified; R31.9 Hematuria, unspecified
CPT/HCPCS: 36415; 74177-TC; 76000-TC-FY; 80053; 81003; 82150; 82550; 83690; 84484; 85025; 87086; 93005; 93010; 94760; 99285-25; C9803; J0131; U0003; U0005

== ENCOUNTER 2021-10-14 19:55 | Emergency (ER) | payer OTHER ==
[2021-10-14] MEDS ORDERED: ACETAMINOPHEN 1000 MG/100 ML VIAL IVPB ONE (20:17)
[2021-10-14] MEDS ORDERED: SODIUM CHLORIDE 0.9% 500 ML INFUS.BAG IV ONE (20:17)
[2021-10-14 20:24] VITALS: TEMP 97.8; BMI 33.0
[2021-10-14] MEDS ORDERED: ACETAMINOPHEN INJECTION 100 ML IVPB ONE (20:40)
[2021-10-14 21:33] LABS: BASO % 0.6 % (0-2.0); EOS % 3.6 % (0-4.5); HEMOGLOBIN 14.9 GM/dL (11.7-16.9); LYMPH % 20.2 % (8-40); MCH 30.3 pg (25.7-33.7); MCHC 34.6 g/dl (32.0-35.9); MEAN CELL VOLUME 87.5 fl (80-96); MEAN PLT VOLUME 8.4 fl (7.5-11.1); MONO % 6.5 % (3.8-10.2); NEUT % 69.1 % (42.8-82.8); PLATELET COUNT 267 10^3/uL (134-434); RBC 4.91 M/mm3 (4.00-5.60); RDW 13.4 % (11.9-15.9); WHITE BLOOD COUNT 10.2 K/mm3 (4.0-10.0)
[2021-10-14 21:37] LABS: EPI CELLS 9 /uL (0-25.1); HYALINE CASTS 1 /uL (0-3.1); PH,URINE 5.5 (5.0-8.0); URINE APPEARANCE CLEAR; URINE BACTERIA 2 /uL (0-1359); URINE BILIRUBIN NEGATIVE (NEGATIVE); URINE COLOR RED; URINE GLUCOSE (UA) NEGATIVE (NEGATIVE); URINE KETONE NEGATIVE (NEGATIVE); URINE LEUK ESTERASE 1+ (NEGATIVE); URINE NITRITE NEGATIVE (NEGATIVE); URINE PROTEIN 2+ (NEGATIVE); URINE RBC 2548 /uL (0-23.9); URINE UROBILINOGEN 0.2 mg/dL (0.2-1.0); URINE WBC 61 /uL (0-25.8)
[2021-10-14 21:55] LABS: ALBUMIN 3.7 g/dl (3.4-5.0); BLOOD UREA NITROGEN 15.7 mg/dL (7-18)
[2021-10-14 21:58] LABS: CREATININE 1.1 mg/dL (0.55-1.3)
[2021-10-14 21:59] LABS: BILIRUBIN,TOTAL 0.4 mg/dL (0.2-1)
[2021-10-15 01:30] VITALS: BP 134/69; PULSE 58
== END 2021-10-15 01:28 | disposition home or self-care (01) ==
LOC: JER 19:55
PROC: 3E033NZ Introduction of Analgesics, Hypnotics, Sedatives into Peripheral Vein, Percutaneous Approach (ICD-10-PCS; principal; 2021-10-14)
DX: N30.01 Acute cystitis with hematuria (principal)
CPT/HCPCS: 36415; 74176-TC; 80053; 81003; 85025; 87086; 96374; 99285-25; J0131

== ENCOUNTER 2021-10-17 04:38 | Day surgery (SDC) | payer OTHER ==
[2021-10-15 15:22] VITALS: BMI 33.0
[2021-10-17] MEDS ORDERED: ROCURONIUM BROMIDE 50 MG/5 ML SYRINGE ONE (09:35)
[2021-10-17] MEDS ORDERED: PROPOFOL 20 ML ONE ×3 (09:35→10:20)
[2021-10-17] MEDS ORDERED: MIDAZOLAM HCL 2 MG/2 ML SINGLE DOSE VIAL ONE ×2 (09:35→10:01)
[2021-10-17] MEDS ORDERED: ceFAZolin SODIUM 1 GM VIAL IVPB ONE ×2 (09:38→10:08)
[2021-10-17] MEDS ORDERED: LIDOCAINE HCL 2% JELLY (5 ML/TUBE) ONE (11:05)
[2021-10-17] MEDS ORDERED: LIDOCAINE HCL 2% JELLY 10 ML CARTRIDGE ONE (11:06)
[2021-10-17] MEDS ORDERED: LIDOCAINE HCL 2% JELLY 10 ML CARTRIDGE TP ONE (11:20)
[2021-10-17] MEDS ORDERED: TAMSULOSIN HCL 0.4 MG CAP PO ONE (11:34)
[2021-10-17] MEDS ORDERED: ACETAMINOPHEN 1000 MG/100 ML VIAL IVPB PRN (11:40)
[2021-10-17] MEDS ORDERED: oxyCODONE HCL 5 MG TABLET PO PRN (11:40)
[2021-10-17] MEDS ORDERED: ONDANSETRON 4 MG/2 ML VIAL IVPUSH PRN (11:40)
[2021-10-17] MEDS ORDERED: CEPHALEXIN MONOHYDRATE 500 MG CAPSULE (UD) PO SCH (12:00)
[2021-10-17 15:09] VITALS: BP 114/72; PULSE 81; TEMP 98
== END 2021-10-17 15:25 | disposition home or self-care (01) ==
LOC: JASU-SURG 04:38
PROVIDERS: ATTEND Urology
PROC: 0T788DZ Dilation of Bilateral Ureters with Intraluminal Device, Via Natural or Artificial Opening Endoscopic (ICD-10-PCS; 2021-10-17)
PROC: BT14YZZ Fluoroscopy of Kidneys, Ureters and Bladder using Other Contrast (ICD-10-PCS; 2021-10-17)
PROC: 0TC48ZZ Extirpation of Matter from Left Kidney Pelvis, Via Natural or Artificial Opening Endoscopic (ICD-10-PCS; principal; 2021-10-17 10:00)
PROC: 0TC68ZZ Extirpation of Matter from Right Ureter, Via Natural or Artificial Opening Endoscopic (ICD-10-PCS; 2021-10-17 10:00)
PROC: 0TC78ZZ Extirpation of Matter from Left Ureter, Via Natural or Artificial Opening Endoscopic (ICD-10-PCS; 2021-10-17 10:00)
PROC: 0TC38ZZ Extirpation of Matter from Right Kidney Pelvis, Via Natural or Artificial Opening Endoscopic (ICD-10-PCS; 2021-10-17 10:00)
DX: N20.0 Calculus of kidney (principal)
CPT/HCPCS: 36415; 76000-TC-FY; 82360; 88300-TC; 94760